=== PATIENT | male | born 1965 | race Caucasian/White ===

== ENCOUNTER → 2016-11-09 | Outpatient (CLI) | payer OTHER ==
[~2016-11-09] MED LIST: FLUT50SP EACH NARE; KCL20 PO; LEVE500 PO; PRAV20 PO; PROZ20CA11 PO; SODI1 PO; SYMB160A INH; VITA200017 PO
--- NOTE | 2016-11-10 11:33 | RSPPFT ---
DATE OF PROCEDURE: 11/09/16 COMMENTS: VOLUMES DYNAMIC: FVC low normal; FEV1 mildly reduced. STATIC: TLC, RV and FRC normal. FLOWS: FEV1% mildly reduced; FEF 25-75 severely reduced. DIFFUSION: Low normal. FLOW VOLUME LOOP: Pattern of variable intrathoracic airways obstruction. IMPRESSION: Mild obstructive ventilatory defect with good response to bronchodilator and normal diffusion.
== END ==
LOC: PHRSP 09:39
PROVIDERS: ATTEND Internal Medicine
DX: J44.9 Chronic obstructive pulmonary disease, unspecified (principal)
CPT/HCPCS: 94060; 94620; 94729

== ENCOUNTER 2017-01-01 07:32 | Observation (INO) | payer OTHER ==
[2017-01-01] VITALS (8 sets, daily range): BP systolic 92–115; BP diastolic 57–75; PULSE 66–84; RESP 14–20; TEMP 96.5–98.7; O2SAT 95–98
[~2017-01-01] VITALS: Ht 170.2 cm; Wt 68.0 kg
[2017-01-01] MEDS ORDERED: VENTAER INH (08:00)
[2017-01-01] MEDS ORDERED: OLAN20TA PO (08:00)
[2017-01-01] MEDS ORDERED: FLUT50SP EACH NARE (08:00)
[2017-01-01] MEDS ORDERED: POTA-163 PO (08:00)
[2017-01-01] MEDS ORDERED: FLUO1TAB3 PO (08:00)
[2017-01-01] MEDS ORDERED: PRAV20TA2 PO (08:00)
[2017-01-01] MEDS ORDERED: SODI1TAB PO (08:00)
[2017-01-01] MEDS ORDERED: [UNRECOGNIZED DRUG - CODE] (08:00)
[2017-01-01] MEDS ORDERED: LEVE500T8 PO (08:00)
[2017-01-01] MEDS ORDERED: SYMB160A INH (08:00)
--- NOTE | 2017-01-01 08:02 | PD ---
HPI Chief Complaint: Fall Time Seen by Provider: 08:01 Travel History International Travel<30 days: No Contact w/Intl Traveler<30days: No Traveled to known affect area: No History of Present Illness HPI 51-year-old male came to the emergency room with history of frequent falling since past 4 days. He's been brought here by his mother. She says that he has history of low potassium and low sodium in the past. Patient seems groggy and disoriented in time. His blood pressure was 94 systolic. As per the mother he has had stroke in the past. However his condition has been declining since past 2 months but worse since past 4 days. Patient is not a reliable historian. History is mostly obtained by his mother. As per her he has been having trouble even walking. [facility] Past Medical History Narrative Medical List of his past medical, surgical, social and family history is reviewed from the nursing note. Depression: Yes High Cholesterol: Yes Cerebrovascular Accident: Yes (SLURRED SPEECH) Diminished Hearing: No Neurologic: Yes (ich, brain trauma) Seizures: Yes Tetanus Vaccination: > 5 Years Influenza Vaccination: Yes Past Surgical History Surgical History: No Previous Surgery Tonsillectomy: Yes Social History Alcohol Use: No Tobacco Use: No (FORMER) Substance Use: Yes Allergies-Medications (Allergen,Severity, Reaction): Coded Allergies: No Known Allergies (Verified Allergy, Unknown, 01/01/17) Comments No known drug allergies. Reported Meds & Prescriptions Reported Meds & Active Scripts Active Reported Symbicort Inh (Budesonide/Formoterol Fumarate) 160-4.5 Mcg/Act Aero 1 Puff INH Q12HR Ventolin Hfa 18 GM Inh (Albuterol Sulfate) 90 Mcg/Act Aer 1 Puff INH Q4H PRN Fluticasone Nasal [place] 50 Mcg/Act Naspr 50 Mcg EACH NARE BID 50 mcg/spray Xaquil Xr (Levomefolate Glucosamine) 30 Mg Tab Olanzapine 20 Mg Tab 20 Mg PO DAILY Potassium Chloride ER (Potassium Chloride) 20 Meq Tab 20 Meq PO TID Fluoxetine (Fluoxetine HCl) 20 Mg Tab 4 Cap PO DAILY Pravastatin 20 Mg Tab 20 Mg PO DAILY Levetiracetam 500 Mg Tab 500 Mg PO BID Sodium Chloride 1 Gram Tab 1 Gm PO DAILY Narrative Medication List of his home medications reviewed from the nursing note. Review of Systems ROS Limitations: Altered Mental Status Except as stated in HPI: all other systems reviewed are Neg Neurologic: Positive: Weakness Physical Exam Narrative GENERAL: Altered mental status, slurred speech, disoriented in time SKIN: Focused skin assessment warm/dry. Scabs on the face HEAD: Atraumatic. Normocephalic. EYES: Pupils equal and round. No scleral icterus. No injection or drainage. ENT: No nasal bleeding or discharge. Mucous membranes pink and moist. NECK: Trachea midline. No JVD. CARDIOVASCULAR: Regular rate and rhythm. No murmur appreciated. RESPIRATORY: No accessory muscle use. Clear to auscultation. Breath sounds equal bilaterally. GASTROINTESTINAL: Abdomen soft, non-tender, nondistended. Hepatic and splenic margins not palpable. MUSCULOSKELETAL: No obvious deformities. No clubbing. No cyanosis. No edema. NEUROLOGICAL: Groggy. No obvious cranial nerve deficits. Motor grossly within normal limits. Slurred speech. Disoriented in time PSYCHIATRIC: Appropriate mood and affect; insight and judgment normal. Data Data Last Documented VS Vital Signs Date Time Temp Pulse Resp B/P (MAP) Pulse Ox O2 Delivery O2 Flow Rate FiO2 01/01/17 09:03 67 16 94/63 (73) 98 Room Air 01/01/17 07:38 97.4 Orders Orders Electrocardiogram (01/01/17 08:05) Ammonia (01/01/17 08:05) Complete Blood Count With Diff (01/01/17 08:05) Comprehensive Metabolic Panel (01/01/17 08:05) Creatine Kinase (Cpk) (01/01/17 08:05) Prothrombin Time / Inr (Pt) (01/01/17 08:05) Troponin I (01/01/17 08:05) Thyroid Stimulating Hormone (01/01/17 08:05) Urinalysis - C+S If Indicated (01/01/17 08:05) Lactic Acid Sepsis Protocol (01/01/17 08:05) Blood Culture (01/01/17 08:05) Chest, Single Ap (01/01/17 08:05) Ct Brain W/O Iv Contrast(Rout) (01/01/17 08:05) Blood Glucose (01/01/17 08:05) Ecg Monitoring (01/01/17 08:05) Iv Access Insert/Monitor (01/01/17 08:05) Oximetry (01/01/17 08:05) Sodium Chloride 0.9% Flush (Ns Flush) (01/01/17 08:15) Sodium Chlor 0.9% 1000 Ml Inj (Ns 1000 M (01/01/17 08:05) Alcohol (Ethanol) (01/01/17 08:06) Drug Screen, Random Urine (01/01/17 08:06) Salicylates (Aspirin) (01/01/17 08:06) Tylenol (Acetaminophen) (01/01/17 08:06) Potassium Chlor 10 Meq Premix (Kcl 10 Me (01/01/17 09:15) Potassium Chloride (Kcl) (01/01/17 09:15) Dextrose 50% In Adi (Syr) Inj (D50w (Syr (01/01/17 09:15) Place In Observation (01/01/17 ) Code Status (01/01/17 09:33) Vital Signs (Adult) Q4H (01/01/17 09:33) Activity Oob With Assistance (01/01/17 09:33) Diet Regular Basic (01/01/17 Breakfast) Sodium Chloride 0.9% Flush (Ns Flush) (01/01/17 09:45) Sodium Chloride 0.9% Flush (Ns Flush) (01/01/17 21:00) Acetaminophen (Tylenol) (01/01/17 09:45) Ondansetron Inj (Zofran Inj) (01/01/17 09:45) Comprehensive Metabolic Panel (01/02/17 06:00) Complete Blood Count With Diff (01/02/17 06:00) Pt Request For Service (01/01/17 09:33) Case Management Consult (01/01/17 09:33) Scd Bilateral/Knee High DAVI.BID (01/01/17 09:33) Acetaminophen (Tylenol) (01/01/17 09:45) Naloxone Inj (Narcan Inj) (01/01/17 09:45) Magnesium Hydroxide Liq (Milk Of Magnesi (01/01/17 09:45) Eeg Study (01/01/17 ) Albuterol Hfa Inh (Proair Hfa Inh) (01/01/17 09:45) Budeson-Formot 160-4.5 Mg Inh (Symbicort (01/01/17 21:00) Fluoxetine (Prozac) (01/02/17 09:00) Levetiracetam (Keppra) (01/01/17 21:00) Olanzapine (Zyprexa) (01/02/17 09:00) Potassium Chloride (Kcl) (01/01/17 13:00) Pravastatin (Pravachol) (01/02/17 09:00) Sodium Chloride (Sodium Chloride) (01/02/17 09:00) Admit Order (Ed Use Only) (01/01/17 09:40) Labs Laboratory Tests Test 01/01/17 08:10 01/01/17 08:20 01/01/17 08:30 Acetaminophen Level LESS THAN 2.0 MCG/ML Ethyl Alcohol Level LESS THAN 3 MG/DL White Blood Count 7.0 TH/MM3 Red Blood Count 4.45 MIL/MM3 Hemoglobin 12.9 GM/DL Hematocrit 38.6 % Mean Corpuscular Volume 86.9 FL Mean Corpuscular Hemoglobin 29.0 PG Mean Corpuscular Hemoglobin Concent 33.3 % Red Cell Distribution Width 13.8 % Platelet Count 330 TH/MM3 Mean Platelet Volume 6.7 FL Neutrophils (%) (Auto) 72.0 % Lymphocytes (%) (Auto) 20.8 % Monocytes (%) (Auto) 6.5 % Eosinophils (%) (Auto) 0.5 % Basophils (%) (Auto) 0.2 % Neutrophils # (Auto) 5.0 TH/MM3 Lymphocytes # (Auto) 1.5 TH/MM3 Monocytes # (Auto) 0.5 TH/MM3 Eosinophils # (Auto) 0.0 TH/MM3 Basophils # (Auto) 0.0 TH/MM3 CBC Comment DIFF FINAL Differential Comment Prothrombin Time 11.5 SEC Prothromb Time International Ratio 1.0 RATIO Blood Urea Nitrogen 8 MG/DL Creatinine 0.89 MG/DL Random Glucose 68 MG/DL Total Protein 7.1 GM/DL Albumin 3.5 GM/DL Calcium Level 8.9 MG/DL Alkaline Phosphatase 64 U/L Aspartate Amino Transf (AST/SGOT) 14 U/L Alanine Aminotransferase (ALT/SGPT) 19 U/L Total Bilirubin 0.5 MG/DL Sodium Level 130 MEQ/L Potassium Level 2.5 MEQ/L Chloride Level 85 MEQ/L Carbon Dioxide Level 36.8 MEQ/L Anion Gap 8 MEQ/L Estimat Glomerular Filtration Rate 90 ML/MIN Lactic Acid Level 1.3 mmol/L Total Creatine Kinase 130 U/L Troponin I LESS THAN 0.02 NG/ML Thyroid Stimulating Hormone 3rd Gen 0.456 uIU/ML Salicylates Level LESS THAN 1.7 MG/DL Ammonia 26 MCMOL/L [facility] Medical Decision Making Medical Screen Exam Complete: Yes Emergency Medical Condition: Yes Medical Record Reviewed: Yes Interpretation(s) Twelve-lead EKG was reviewed by me. Normal sinus rhythm, normal axis, nonspecific ST-T wave changes. Heart rate of 78 bpm. Differential Diagnosis Intracranial bleed, stroke, hyponatremia, hypokalemia, metabolic encephalopathy Narrative Course 9:[address] scan is back and negative for any acute changes. Blood test is significant for a potassium of 2.5 and moderate hyponatremia and hypochloremia. I've ordered for IV and by mouth potassium replacement. His blood sugar was 68 and I've ordered D50. I would like to admit this patient at this point. Awaiting for the hospitalist to call back. Critical Care Narrative Aggregate critical care time was 30 minutes. Time to perform other separately billable procedures was not included in the critical care time. My time did not include minutes spent treating any other patients simultaneously or on activities that did not directly contribute to the patient's treatment. The services I provided to this patient were to treat and/or prevent clinically significant deterioration that could result in: Severe hypokalemia, altered mental status, potassium replacement I provided critical care services requiring my management, as noted below: Chart data review, documentation time, medication orders and management, vital sign assessments/reviewing monitor data, ordering and reviewing lab tests, ordering and interpreting/reviewing x-rays and diagnostic studies, care of the patient and discussion of the patient with the admitting physicians. Procedures EKG Prior to Arrival: No Diagnosis Primary Impression: Altered mental status Qualified Codes: R41.0 - Disorientation, unspecified Additional Impressions: Hypokalemia Hyponatremia Hyperchloremia Hypoglycemia Frequent falls Unsteady gait Admitting Information Admitting Physician Requests: Sarah Salguero MD Jan 01, 2017 08:02
[2017-01-01] MEDS ORDERED: SODIUM CHLOR 0.9% 1000 ML INJ 1,000 ML IV SCH (08:05)
[2017-01-01] MEDS ORDERED: SODIUM CHLORIDE 0.9% FLUSH 5 ML FLUSH IV FLUSH PRN (08:15)
[2017-01-01 08:38] LABS: BASOPHIL % 0.2 % (0.0-2.0); EOSINOPHIL % 0.5 % (0.0-4.0); HEMATOCRIT 38.6 % (39.0-51.0); HEMO FLAGS DIFF FINAL; LYMPH % 20.8 % (9.0-44.0); LYMPHOCYTE # 1.5 TH/MM3 (1.0-4.8); MEAN CELL VOLUME 86.9 FL (80.0-100.0); MEAN CORPUSCULAR HGB CONC 33.3 % (32.0-36.0); MONO % 6.5 % (0.0-8.0); PLATELET COUNT 330 TH/MM3 (150-450); RED BLOOD COUNT 4.45 MIL/MM3 (4.50-5.90); RED CELL DISTRIBUTION WIDTH 13.8 % (11.6-17.2)
--- NOTE | 2017-01-01 08:40 | RADRPT ---
EXAM DATE/TIME: 01/01/2017 08:29 [facility] COMPARISON: CHEST SINGLE AP, April 22, 2015, 10:34. INDICATIONS : Syncopal episodes for the last month. MEDICAL HISTORY : Stroke. Right side brain trauma. SURGICAL HISTORY : None. ENCOUNTER: Initial ACUITY: 1 month PAIN SCORE: 0/10 LOCATION: Bilateral chest FINDINGS: A single view of the chest demonstrates the lungs to be symmetrically aerated without evidence of mas s, infiltrate or effusion. Linear atelectasis within the right base. The cardiomediastinal contours a re unremarkable. Osseous structures are intact. CONCLUSION: No acute disease. Shabbir Solorio Jr., MD on January 01, 2017 at 8:37 Board Certified Radiologist. This report was verified electronically.
--- NOTE | 2017-01-01 08:55 | RADRPT ---
EXAM DATE/TIME: 01/01/2017 08:41 [facility] COMPARISON: CT BRAIN W/O CONTRAST, July 18, 2015, 14:20. INDICATIONS : Unsteady gait. Fall. RADIATION DOSE: 59.61 CTDIvol (mGy) MEDICAL HISTORY : Cerebrovascular disease. Seizures. SURGICAL HISTORY : Tonsillectomy. ENCOUNTER: Initial ACUITY: 4 - 6 days PAIN SCALE: 2/10 LOCATION: cranial TECHNIQUE: Multiple contiguous axial images were obtained of the head. Using automated exposure control and adj ustment of the mA and/or kV according to patient size, radiation dose was kept as low as reasonably a chievable to obtain optimal diagnostic quality images. DICOM format image data is available electro nically for review and comparison. FINDINGS: Old infarcts are seen in the left temporal parietal region. Frontal atrophy is evident. There is mi ld atrophy. There is no parenchymal hemorrhage or acute infarction. The posterior fossa is unremark able. There is no significant sinus disease. CONCLUSION: Chronic changes, negative for acute infarction. Yoshi Jhaveri MD FACR on January 01, 2017 at 8:52 Board Certified Radiologist. This report was verified electronically.
[2017-01-01 09:00] LABS: ALT (GPT) 19 U/L (12-78); ANION GAP 8 MEQ/L (5-15); AST (GOT) 14 U/L (15-37); BICARBONATE 36.8 MEQ/L (21.0-32.0); BLOOD UREA NITROGEN 8 MG/DL (7-18); CHLORIDE 85 MEQ/L (98-107); GLOMERULAR FILTRATION RATE 90 ML/MIN (>89); SODIUM (NA) 130 MEQ/L (136-145)
[2017-01-01 09:01] LABS: ALCOHOL LESS THAN 3 MG/DL (0-5)
[2017-01-01 09:05] LABS: POTASSIUM 2.5 MEQ/L (3.5-5.1); PROTHROMBIN TIME - PATIENT 11.5 SEC (9.8-11.6)
[2017-01-01 09:12] LABS: ALKALINE PHOSPHATASE 64 U/L (45-117); CREATINE KINASE 130 U/L (39-308); TOTAL BILIRUBIN ADULT 0.5 MG/DL (0.2-1.0)
[2017-01-01] MEDS ORDERED: POTASSIUM CHLORIDE 20 MEQ CONTROLLED RELEASE TAB PO ONE (09:15)
[2017-01-01] MEDS ORDERED: DEXTROSE 50% IN WATER 50 ML SYRINGE IV PUSH ONE (09:15)
[2017-01-01] MEDS: POTASSIUM CHLOR 10 MEQ PREMIX 100 ML IV SCH ×3 (09:31→12:53)
[2017-01-01] MEDS ORDERED: NALOXONE HCL 0.4 MG/ML AMP IV PUSH PRN (09:45)
[2017-01-01] MEDS ORDERED: ACETAMINOPHEN 325 MG TAB PO PRN ×2 (09:45)
[2017-01-01] MEDS ORDERED: ALBUTEROL SULFATE 90 MCG/ACT HFA 8 GM INHALER INH PRN (09:45)
[2017-01-01] MEDS ORDERED: MAGNESIUM HYDROXIDE SUSP 30 ML CUP PO PRN (09:45)
[2017-01-01] MEDS ORDERED: SODIUM CHLORIDE 0.9% FLUSH 10 ML FLUSH IV FLUSH PRN (09:45)
[2017-01-01] MEDS ORDERED: ONDANSETRON HCL 4 MG/2 ML VIAL IVP PRN (09:45)
[2017-01-01 10:28] LABS: ACETAMINOPHEN LESS THAN 2.0 MCG/ML (10.0-30.0)
[2017-01-01 10:46] LABS: BLOOD, URINE LARGE (NEG); GLUCOSE,URINE 100 mg/dL (NEG); KETONE, URINE NEG (NEG); NITRITE,URINE NEG (NEG); PH, URINE 7.5 (5.0-8.5)
[2017-01-01 10:52] LABS: METHOD OF COLLECTION CATH; URINE COLOR STRAW (YELLW/STRAW)
[2017-01-01 10:55] LABS: COMMENT (UR) CATH-CULT NOT IND; CULTURE IF INDICATED CATH CULTURE NOT IND
--- NOTE | 2017-01-01 10:59 | HHI.HP ---
[facility] Darin Edgar MD Admission Diagnosis EMS, hypokalemia, hyponatremia, hypoglycemia Diagnoses: (1) Frequent falls Diagnosis: Principal (2) Hyponatremia Diagnosis: Principal (3) Hypokalemia Diagnosis: Principal (4) Unsteady gait Diagnosis: Principal Chief Complaint: Frequent falls at home Travel History International Travel<30 Days: No Contact w/Intl Traveler <30 Da: No Traveled to Known Affected Are: No History of Present Illness Written by Wally Guerrero, acting as scribe for Dr. Watts on 01/01/17 at 10 :58. 51 year-old male with known history of closed head injury, CVA, frontal lobe damage, seizure history, hyperlipidemia, bipolar disorder who presented to hospital with his mother because of 4 day history of recurrent falls. Information was taken from mother at bedside, she indicates that for the last 4 days the patient is had episodes of where this IQ just fall asleep while he is standing up and falls down. She states that he went to take the dog out for a walk and they went outside and found him lying face down on the concrete where he caused abrasions to the left side of his face. She indicates that she has had difficulty in lifting him back Whenever he falls down. He does have a confused state after the episodes with not being able to remember what happened during that time. There is no episodes of loss of bowel or bladder control or biting of his tongue. Patient has had admissions previously because of seizure disorder. Does have chronic hyponatremia and hypokalemia. He is followed by Dr. Peralta, neurology in outpatient setting. Patient was recommended observation the hospital to evaluate for the patient's episodes. Review of Systems Cardiovascular: COMPLAINS OF: Syncope Psychiatric: COMPLAINS OF: Confusion Except as stated in HPI: all other systems reviewed are Neg Past Family Social History Past Medical History Seizure disorder History of CVA History of intracranial hemorrhage Chronic hyponatremia Recurrent hypokalemia Suicidal ideation Traumatic brain injury Bipolar disorder Past Surgical History No history of any surgeries Reported Medications Reported Meds & Active Scripts Active Reported Symbicort Inh (Budesonide/Formoterol Fumarate) 160-4.5 Mcg/Act Aero 1 Puff INH Q12HR Ventolin Hfa 18 GM Inh (Albuterol Sulfate) 90 Mcg/Act Aer 1 Puff INH Q4H PRN Fluticasone Nasal [place] 50 Mcg/Act Naspr 50 Mcg EACH NARE BID 50 mcg/spray Xaquil Xr (Levomefolate Glucosamine) 30 Mg Tab Olanzapine 20 Mg Tab 20 Mg PO DAILY Potassium Chloride ER (Potassium Chloride) 20 Meq Tab 20 Meq PO TID Fluoxetine (Fluoxetine HCl) 20 Mg Tab 4 Cap PO DAILY Pravastatin 20 Mg Tab 20 Mg PO DAILY Levetiracetam 500 Mg Tab 500 Mg PO BID Sodium Chloride 1 Gram Tab 1 Gm PO DAILY Allergies: Coded Allergies: No Known Allergies (Verified Allergy, Unknown, 01/01/17) Family History Reviewed is significant for father with heart disease, Social History Patient smokes one half pack a cigarettes a day since he was 14 years old, denies any alcohol or illicit drugs Physical Exam Vital Signs Vital Signs Date Time Temp Pulse Resp B/P (MAP) Pulse Ox O2 Delivery O2 Flow Rate FiO2 01/01/17 10:33 70 16 115/75 (88) 98 Room Air 01/01/17 09:03 67 16 94/63 (73) 98 Room Air 01/01/17 08:11 97 Room Air 01/01/17 07:49 75 Room Air 01/01/17 07:38 97.4 82 18 101/68 (79) 95 Physical Exam GENERAL: Well-developed, well-nourished, in no acute distress. alert and orientated HEENT: Head is normocephalic patient does have some abrasions noted over his left brow, nasal bridge, left cheek. Facial features are symmetric. Eyes: Pupils equal round reactive to light. Extraocular muscles are intact. Conjunctivae were clear. Oropharyngeal: Pharynx without any erythema edema. Tongue is midline without deviation. Buccal mucosa is moist without any masses or lesions NECK: Supple without any masses. Trachea midline no deviation. No JVD, no bruits are appreciated CARDIAC: Regular rhythm, regular rate. S1/S2 are heard. No murmurs gallops or rubs. LUNGS: Clear to auscultation bilaterally. No wheeze, rhonchi or rales. No use of accessory muscles on inspiration or expiration. ABDOMEN: Soft, nontender. Nondistended. Bowel sounds heard in all 4 quadrants. No organomegaly or masses. Negative rebound, negative guarding EXTREMITIES: No edema, pulses are equal bilaterally. No cyanosis or clubbing NEUROLOGY: Mood and affect appear appropriate. Cranial nerves II through XII grossly intact. Muscle strength 5/5 in upper and lower extremities bilaterally. Deep tendon reflexes are 2+ in upper and lower extremities bilaterally. Laboratory Laboratory Tests Test 01/01/17 08:10 01/01/17 08:20 01/01/17 08:30 01/01/17 10:30 Acetaminophen Level LESS THAN 2.0 Ethyl Alcohol Level LESS THAN 3 White Blood Count 7.0 Red Blood Count 4.45 Hemoglobin 12.9 Hematocrit 38.6 Mean Corpuscular Volume 86.9 Mean Corpuscular Hemoglobin 29.0 Mean Corpuscular Hemoglobin Concent 33.3 Red Cell Distribution Width 13.8 Platelet Count 330 Mean Platelet Volume 6.7 Neutrophils (%) (Auto) 72.0 Lymphocytes (%) (Auto) 20.8 Monocytes (%) (Auto) 6.5 Eosinophils (%) (Auto) 0.5 Basophils (%) (Auto) 0.2 Neutrophils # (Auto) 5.0 Lymphocytes # (Auto) 1.5 Monocytes # (Auto) 0.5 Eosinophils # (Auto) 0.0 Basophils # (Auto) 0.0 CBC Comment DIFF FINAL Differential Comment Prothrombin Time 11.5 Prothromb Time International Ratio 1.0 Blood Urea Nitrogen 8 Creatinine 0.89 Random Glucose 68 Total Protein 7.1 Albumin 3.5 Calcium Level 8.9 Alkaline Phosphatase 64 Aspartate Amino Transf (AST/SGOT) 14 Alanine Aminotransferase (ALT/SGPT) 19 Total Bilirubin 0.5 Sodium Level 130 Potassium Level 2.5 Chloride Level 85 Carbon Dioxide Level 36.8 Anion Gap 8 Estimat Glomerular Filtration Rate 90 Lactic Acid Level 1.3 Total Creatine Kinase 130 Troponin I LESS THAN 0.02 Thyroid Stimulating Hormone 3rd Gen 0.456 Salicylates Level LESS THAN 1.7 Ammonia 26 Urine Collection Type CATH Urine Color STRAW Urine Turbidity CLEAR Urine pH 7.5 Urine Specific [place] 1.006 Urine Protein NEG Urine Glucose (UA) 100 Urine Ketones NEG Urine Occult Blood LARGE Urine Nitrite NEG Urine Bilirubin NEG Urine Leukocyte Esterase NEG Urine RBC 10-14 Microscopic Urinalysis Comment CATH-CULT NOT IND Date/Time Source Procedure Growth Status 01/01/17 08:25 Blood Peripheral Aerobic Blood Culture Pending Received 01/01/17 08:25 Blood Peripheral Anaerobic Blood Culture Pending Received Result Diagram: 01/01/1781901/01/17819 Caprini VTE Risk Assessment Caprini VTE Risk Assessment: Mod/High Risk (score >= 2) Caprini Risk Assessment Model Point Value = 1 Point Value = 2 Point Value = 3 Point Value = 5 Age 41-60 Minor surgery BMI > 25 kg/m2 Swollen legs Varicose veins or History of unexplained or recurrent spontaneous Oral contraceptives or hormone replacement Sepsis (< 1 month) Serious lung disease, including pneumonia (< 1 month) Abnormal pulmonary function Acute myocardial infarction Congestive heart failure (< 1 month) History of inflammatory bowel disease Medical patient at bed rest Age 61-74 Arthroscopic surgery Major open surgery (> 45 min) Laparoscopic surgery (> 45 min) Malignancy Confined to bed (> 72 hours) Immobilizing plaster cast Central venous access Age >= 75 History of VTE Family history of VTE Factor V Leiden Prothrombin [id number] Lupus anticoagulant Anticardiolipin antibodies Elevated serum homocysteine Heparin-induced thrombocytopenia Other congenital or acquired thrombophilia Stroke (< 1 month) Elective arthroplasty Hip, pelvis, or leg fracture Acute spinal cord injury (< 1 month) Prophylaxis Regimen Total Risk Factor Score Risk Level Prophylaxis Regimen 0-1 Low Early ambulation 2 Moderate Order ONE of the following: *Sequential Compression Device (SCD) *Heparin 5000 units SQ BID 3-4 Higher Order ONE of the following medications: *Heparin 5000 units SQ TID *Enoxaparin/Lovenox 40 mg SQ daily (WT < 150 kg, CrCl > 30 mL/min) *Enoxaparin/Lovenox 30 mg SQ daily (WT < 150 kg, CrCl > 10-29 mL/min) *Enoxaparin/Lovenox 30 mg SQ BID (WT < 150 kg, CrCl > 30 mL/min) AND/OR *Sequential Compression Device (SCD) 5 or more Highest Order ONE of the following medications: *Heparin 5000 units SQ TID (Preferred with Epidurals) *Enoxaparin/Lovenox 40 mg SQ daily (WT < 150 kg, CrCl > 30 mL/min) *Enoxaparin/Lovenox 30 mg SQ daily (WT < 150 kg, CrCl > 10-29 mL/min) *Enoxaparin/Lovenox 30 mg SQ BID (WT < 150 kg, CrCl > 30 mL/min) AND *Sequential Compression Device (SCD) Assessment and Plan Problem List: (1) Hyponatremia ICD Code: E87.1 - Hypo-osmolality and hyponatremia Status: Acute (2) Hypokalemia ICD Code: E87.6 - Hypokalemia Status: Acute (3) Frequent falls ICD Code: R29.6 - Repeated falls Status: Acute Assessment and Plan 51 year-old male who was brought to the hospital by his mother because of recurrent falls and altered mentation Recurrent falls at home, difficulty ambulation for 4 days with possible post ictal state, confusion Workup thus far does not indicate any metabolic encephalopathy or etiology, could be related to electrolyte abnormality Obtain EEG Physical therapy evaluation CT the brain does not indicate any acute abnormality Electrolyte abnormalities with chronic hyponatremia, recurrent hypokalemia Replace and continue to monitor Seizure disorder, history of CVA, Resume home medications to include Keppra Check EEG and consider Neurology consultation if abnormal Bipolar disorder Continue home medications DVT prevention sequential compression devices This note was transcribed by scribjorge Guerrero. I, Dr. Bolivar Watts personally performed the history, physical exam, and medical decision making; and confirmed the accuracy of the information in the transcribed note. Authenticated by Dr. Bolivar Watts on 01/01/17 at 10:58. Code Status Full code Discussed Condition With patient, Mother, ED physician Wally Guerrero Jan 01, 2017 10:59 Bolivar Watts MD Jan 01, 2017 11:02
--- NOTE | 2017-01-01 12:07 | EKG ---
Date Performed: 01/01/2017 Time Performed: 08:12:52 PTAGE: 51 years EKG: Sinus rhythm NORMAL ECG PREVIOUS TRACING : 04/22/2015 10.08 No significant change from previous tracing noted. DOCTOR: Krishan Logan Interpretating Date/Time 01/01/2017 12:05:24
[2017-01-01] MEDS: POTASSIUM CHLORIDE 20 MEQ CONTROLLED RELEASE TAB PO SCH ×2 (12:53→17:49)
--- NOTE | 2017-01-01 18:29 | MG ---
cc: GWEN DAVIS MD Lab No: [id number] Date: 01/01/17 Age: 51 Sex: M Race: DATE OF 1965 HISTORY A 51-year-old male with history of brain injury, confusion, syncope, previous strokes. DESCRIPTION OF RECORD 5-6 Hz posterior rhythm. 10-40 microvolts, myogenic artifact in the frontal channels. Attenuation, generalized slowing with transition into drowsy state. Mild driving with photic stimulation. Single lead EKG showing sinus rhythm. Good EEG variability, reactivity. INTERPRETATION Mild encephalopathy. Clinical correlation. Gwen Davis MD MG/EO /6:14 PM /6:22 PM
[2017-01-01] MEDS: levETIRAcetam 500 MG TAB PO SCH (20:54)
[2017-01-01] MEDS: SODIUM CHLORIDE 0.9% FLUSH 10 ML FLUSH IV FLUSH SCH (20:54)
[2017-01-01] MEDS: BUDESONIDE-FORMOTEROL 160/4.5 MCG INHALER INH SCH (20:54)
[2017-01-02] VITALS: BP 91/53; PULSE 78; RESP 20; TEMP 97.5; O2SAT 97
[2017-01-02 04:00] VITALS: BP 103/61; PULSE 86; RESP 20; TEMP 99; O2SAT 98
[2017-01-02 06:18] LABS: AUTOMATED NEUTROPHIL # 4.6 TH/MM3 (1.8-7.7); BASOPHIL % 0.4 % (0.0-2.0); EOSINOPHIL # 0.1 TH/MM3 (0-0.4); EOSINOPHIL % 0.9 % (0.0-4.0); HEMATOCRIT 37.7 % (39.0-51.0); HEMO FLAGS DIFF FINAL; LYMPH % 19.5 % (9.0-44.0); LYMPHOCYTE # 1.2 TH/MM3 (1.0-4.8); MEAN CELL VOLUME 88.6 FL (80.0-100.0); MEAN CORPUSCULAR HEMOGLOBIN 28.3 PG (27.0-34.0); MONO % 6.6 % (0.0-8.0); NEUT % 72.6 % (16.0-70.0); PLATELET COUNT 333 TH/MM3 (150-450); RED BLOOD COUNT 4.25 MIL/MM3 (4.50-5.90); RED CELL DISTRIBUTION WIDTH 14.6 % (11.6-17.2); WHITE BLOOD COUNT 6.3 TH/MM3 (4.0-11.0)
[2017-01-02 06:51] LABS: ALKALINE PHOSPHATASE 65 U/L (45-117); ALT (GPT) 17 U/L (12-78); ANION GAP 7 MEQ/L (5-15); AST (GOT) 9 U/L (15-37); BICARBONATE 31.1 MEQ/L (21.0-32.0); BLOOD UREA NITROGEN 7 MG/DL (7-18); CHLORIDE 98 MEQ/L (98-107); GLOMERULAR FILTRATION RATE 109 ML/MIN (>89); POTASSIUM 3.2 MEQ/L (3.5-5.1); SODIUM (NA) 136 MEQ/L (136-145); TOTAL BILIRUBIN ADULT 0.3 MG/DL (0.2-1.0)
[2017-01-02 08:00] VITALS: BP 109/66; PULSE 70; RESP 18; TEMP 97; O2SAT 99
[2017-01-02 08:01] VITALS: PULSE 91
[2017-01-02] MEDS: POTASSIUM CHLORIDE 20 MEQ CONTROLLED RELEASE TAB PO SCH ×2 (08:05→11:38)
[2017-01-02] MEDS: levETIRAcetam 500 MG TAB PO SCH (08:07)
[2017-01-02] MEDS: SODIUM CHLORIDE 0.9% FLUSH 10 ML FLUSH IV FLUSH SCH (08:08)
[2017-01-02] MEDS: BUDESONIDE-FORMOTEROL 160/4.5 MCG INHALER INH SCH (08:08)
[2017-01-02] MEDS ORDERED: PRAVASTATIN SOD 20 MG TAB PO SCH (09:00)
[2017-01-02] MEDS ORDERED: OLANZapine 10 MG TAB PO SCH (09:00)
[2017-01-02] MEDS ORDERED: FLUoxetine HCL 20 MG CAP PO SCH (09:00)
[2017-01-02] MEDS ORDERED: OLANZapine 5 MG TAB PO SCH (09:00)
[2017-01-02] MEDS ORDERED: SODIUM CHLORIDE 1 GRAM TAB PO SCH (09:00)
--- NOTE | 2017-01-02 10:20 | HHI.DCPOC ---
Discharge Care Plan Diagnosis: (1) Frequent falls (2) Hypokalemia Goals to Promote Your Health * To prevent worsening of your condition and complications * To maintain your health at the optimal level Directions to Meet Your Goals Take your medications as prescribed Follow your dietary instruction Follow activity as directed Keep your appointments as scheduled Take your immunizations and boosters as scheduled If your symptoms worsen call your PCP, if no PCP go to Urgent Care Center or Emergency Room Smoking is Dangerous to Your Health. Avoid second hand smoke Call the 24-hour hour crisis hotline for domestic abuse at Barbra Hylton MD Jan 02, 2017 10:20
--- NOTE | 2017-01-02 10:36 | HHI.DS ---
Discharge Summary Admission Date Jan 01, 2017 at 09:41 Discharge Date: Jan 02, 2017 Admitting Diagnosis EMS, hypokalemia, hyponatremia, hypoglycemia (1) Hyponatremia ICD Code: E87.1 - Hypo-osmolality and hyponatremia Status: Acute (2) Hypokalemia ICD Code: E87.6 - Hypokalemia Status: Acute (3) Frequent falls ICD Code: R29.6 - Repeated falls Status: Acute Procedures none Brief History - From Admission Written by Wally Guerrero, acting as scribe for Dr. Watts on 01/01/17 at 10 :58. 51 year-old male with known history of closed head injury, CVA, frontal lobe damage, seizure history, hyperlipidemia, bipolar disorder who presented to hospital with his mother because of 4 day history of recurrent falls. Information was taken from mother at bedside, she indicates that for the last 4 days the patient is had episodes of where this IQ just fall asleep while he is standing up and falls down. She states that he went to take the dog out for a walk and they went outside and found him lying face down on the concrete where he caused abrasions to the left side of his face. She indicates that she has had difficulty in lifting him back Whenever he falls down. He does have a confused state after the episodes with not being able to remember what happened during that time. There is no episodes of loss of bowel or bladder control or biting of his tongue. Patient has had admissions previously because of seizure disorder. Does have chronic hyponatremia and hypokalemia. He is followed by Dr. Peralta, neurology in outpatient setting. Patient was recommended observation the hospital to evaluate for the patient's episodes. CBC/BMP: 01/02/17 0555 01/02/17 0555 Significant Findings Laboratory Tests Test 01/01/17 08:10 01/01/17 08:20 01/01/17 08:30 01/01/17 10:30 Acetaminophen Level LESS THAN 2.0 MCG/ML Red Blood Count 4.45 MIL/MM3 (4.50-5.90) Hemoglobin 12.9 GM/DL (13.0-17.0) Hematocrit 38.6 % (39.0-51.0) Mean Platelet Volume 6.7 FL (7.0-11.0) Neutrophils (%) (Auto) 72.0 % (16.0-70.0) Random Glucose 68 MG/DL (74-106) Aspartate Amino Transf (AST/SGOT) 14 U/L (15-37) Sodium Level 130 MEQ/L (136-145) Potassium Level 2.5 MEQ/L (3.5-5.1) Chloride Level 85 MEQ/L (98-107) Carbon Dioxide Level 36.8 MEQ/L (21.0-32.0) Troponin I LESS THAN 0.02 NG/ML Salicylates Level LESS THAN 1.7 MG/DL Urine Glucose (UA) 100 mg/dL (NEG) Urine Occult Blood LARGE (NEG) Urine RBC 10-14 /hpf (0-3) Urine Benzodiazepines Screen POS (NEG) Test 01/02/17 05:55 Red Blood Count 4.25 MIL/MM3 (4.50-5.90) Hemoglobin 12.0 GM/DL (13.0-17.0) Hematocrit 37.7 % (39.0-51.0) Mean Platelet Volume 6.6 FL (7.0-11.0) Neutrophils (%) (Auto) 72.6 % (16.0-70.0) Albumin 3.3 GM/DL (3.4-5.0) Calcium Level 8.4 MG/DL (8.5-10.1) Aspartate Amino Transf (AST/SGOT) 9 U/L (15-37) Potassium Level 3.2 MEQ/L (3.5-5.1) Imaging Last Impressions Head CT 01/01/17804 Signed Impressions: Service Date/Time: Sunday, January 01, 2017 08:41 - CONCLUSION: Chronic changes, negative for acute infarction. Yoshi Jhaveri MD FACR Chest X-Ray 01/01/17804 Signed Impressions: Service Date/Time: Sunday, January 01, 2017 08:29 - CONCLUSION: No acute disease. Shabbir Solorio Jr., MD PE at Discharge GENERAL: This is a well-nourished, well-developed patient, in no apparent distress. CARDIOVASCULAR: Regular rate and rhythm without murmurs, gallops, or rubs. RESPIRATORY: Clear to auscultation. Breath sounds equal bilaterally. No wheezes , rales, or rhonchi. GASTROINTESTINAL: Abdomen soft, non-tender, nondistended. Normal active bowel sounds MUSCULOSKELETAL: Extremities without clubbing, cyanosis, or edema. NEURO: animated, Alert & Oriented x4 to person, place, time, situation. Moves all ext x4 Hospital Course Patient was seen and evaluated for recurrent falls at home. Patient did have an EEG done. He also has electrolytes checked and was found to be sniffly hypokalemic. His potassium was replaced. Patient was monitored on telemetry without evidence of arrhythmia. CT of the head and EEG were unremarkable. Patient does have a chronic brain injury as well as a history of stroke. Patient did well in the hospital and was discharged home Pt Condition on Discharge: Good Discharge Disposition: Discharge Home Discharge Time: <= 30 minutes Discharge Instructions DIET: Follow Instructions for: As Tolerated, No Restrictions Activities you can perform: Regular-No Restrictions Follow up Referrals: PCP Follow-up - 1 Week Continued Medications: Albuterol 18 GM Inh (Ventolin Hfa 18 GM Inh) 90 Mcg/Act Aer 1 PUFF INH Q4H PRN for SHORTNESS OF BREATH, #1 INHALER 0 Refills Budesonide-Formoterol Inh (Symbicort Inh) 160-4.5 Mcg/Act Aero 1 PUFF INH Q12HR, #1 INHALER 0 Refills Fluoxetine (Fluoxetine) 20 Mg Tab 4 CAP PO DAILY, #30 TAB 0 Refills Fluticasone Nasal [place] (Fluticasone Nasal [place]) 50 Mcg/Act Naspr 50 MCG EACH NARE BID for Allergy Management, #1 BOTTLE 0 Refills 50 mcg/spray Levetiracetam (Levetiracetam) 500 Mg Tab 500 MG PO BID for Control Seizures, #60 TAB 0 Refills Levomefolate Glucosamine (Xaquil Xr) 30 Mg Tab Olanzapine (Olanzapine) 20 Mg Tab 20 MG PO DAILY, #30 TAB 0 Refills Potassium Chloride ER (Potassium Chloride ER) 20 Meq Tab 20 MEQ PO TID for Electrolyte Replacement, #60 TAB 0 Refills Pravastatin (Pravastatin) 20 Mg Tab 20 MG PO DAILY for Cholesterol Management, #30 TAB 0 Refills Sodium Chloride (Sodium Chloride) 1 Gram Tab 1 GM PO DAILY for Electrolyte Replacement, TAB 0 Refills Barbra Hylton MD Jan 02, 2017 10:36
[2017-01-02] MEDS ORDERED: MAGNESIUM SULFATE 1 GM PREMIX 100 ML IV ONE (11:00)
[2017-01-02 12:00] VITALS: BP 91/54; PULSE 76; RESP 16; TEMP 98.7; O2SAT 99
== END 2017-01-02 12:56 | disposition home or self-care (01) ==
LOC: PHED 07:32 → PHEDA 09:41 → PH3A 11:03
PROVIDERS: ADMIT Hospitalist; ATTEND Hospitalist
DX: E87.1 Hypo-osmolality and hyponatremia (principal); E87.6 Hypokalemia; R29.6 Repeated falls; S00.81XA Abrasion of other part of head, initial encounter; R26.81 Unsteadiness on feet; E78.5 Hyperlipidemia, unspecified; G40.909 Epilepsy, unspecified, not intractable, without status epilepticus; R55 Syncope and collapse; F17.210 Nicotine dependence, cigarettes, uncomplicated; Z86.73 Personal history of transient ischemic attack (TIA), and cerebral infarction without residual deficits; W19.XXXA Unspecified fall, initial encounter; Y93.K1 Activity, walking an animal; Y92.017 Garden or yard in single-family (private) house as the place of occurrence of the external cause
CPT/HCPCS: 70450; 71010; 80053; 80307; 81001; 82140; 82550; 83605; 83735; 84443; 84484; 85025; 85610; 87040; 93005; 95819; 96361; 96365; 96366; 97110; 97163; 97530; 99285; G0378; G8987; G8988; J3475; J3480; J7030

== ENCOUNTER 2017-01-21 09:21 | Inpatient (IN) | payer OTHER, MEDICARE ==
[2017-01-21] VITALS (17 sets, daily range): BP systolic 83–126; BP diastolic 53–76; PULSE 92–156; RESP 18–38; TEMP 97.5–102.9; O2SAT 95–98
[~2017-01-21 09:21] MED LIST changes: +FLUO1TAB3 PO; -KCL20 PO; -LEVE500 PO; +LEVE500T8 PO; +OLAN20TA PO; +POTA-163 PO; -PRAV20 PO; +PRAV20TA2 PO; -PROZ20CA11 PO; -SODI1 PO; +SODI1TAB PO; +VENTAER INH; -VITA200017 PO; +[UNRECOGNIZED DRUG - CODE]
[2017-01-21] MEDS ORDERED: CEFEPIME INJ 2,000 MG in SODIUM CHLORIDE 0.9% INJ 100 ML IV STA (09:35)
[2017-01-21] MEDS ORDERED: AZITHROMYCIN INJ 500 MG in SODIUM CHLOR 0.9% 250 ML INJ 250 ML IV STA (09:35)
--- NOTE | 2017-01-21 09:42 | PD ---
HPI Chief Complaint: altered mental status, weakness Time Seen by Provider: 09:35 Travel History International Travel<30 days: No Contact w/Intl Traveler<30days: No History of Present Illness HPI 51-year-old male patient with history of previous stroke, electrolyte abnormalities, presents to the ER today brought in by mom because he is generally weak and appears disoriented today. Patient is fairly disoriented, was trying to pick things off the floor at a store according to mom, and is not able to give me any further history. Modifying Factors: None Associated Signs & Symptoms: General weakness, altered mental status Risk Factors: Previous stroke, electrolyte abnormalities PFSH Past Medical History Depression: Yes Cancer: No Cardiovascular Problems: Yes High Cholesterol: Yes COPD: Yes Cerebrovascular Accident: Yes (SLURRED SPEECH) Diminished Hearing: No Endocrine: No Genitourinary: No Immune Disorder: No Musculoskeletal: No Neurologic: Yes (BRAIN INJURY) Psychiatric: Yes Reproductive: No Respiratory: Yes Seizures: Yes Past Surgical History Tonsillectomy: Yes Social History Alcohol Use: No Tobacco Use: No (FORMER) Substance Use: No Allergies-Medications (Allergen,Severity, Reaction): Coded Allergies: No Known Allergies (Verified Allergy, Unknown, 01/01/17) Reported Meds & Prescriptions Reported Meds & Active Scripts Active Reported Symbicort Inh (Budesonide/Formoterol Fumarate) 160-4.5 Mcg/Act Aero 1 Puff INH Q12HR Ventolin Hfa 18 GM Inh (Albuterol Sulfate) 90 Mcg/Act Aer 1 Puff INH Q4H PRN Fluticasone Nasal [place] 50 Mcg/Act Naspr 50 Mcg EACH NARE BID 50 mcg/spray Xaquil Xr (Levomefolate Glucosamine) 30 Mg Tab Olanzapine 20 Mg Tab 20 Mg PO DAILY Potassium Chloride ER (Potassium Chloride) 20 Meq Tab 20 Meq PO TID Fluoxetine (Fluoxetine HCl) 20 Mg Tab 4 Cap PO DAILY Pravastatin 20 Mg Tab 20 Mg PO DAILY Levetiracetam 500 Mg Tab 500 Mg PO BID Sodium Chloride 1 Gram Tab 1 Gm PO DAILY Review of Systems ROS Limitations: Altered Mental Status Physical Exam Narrative GENERAL: Well-developed middle age white male patient currently in moderate distress, awake but disoriented. SKIN: Focused skin assessment warm/dry. HEAD: Atraumatic. Normocephalic. EYES: Pupils equal and round. No scleral icterus. No injection or drainage. ENT: No nasal bleeding or discharge. Mucous membranes pink and moist. NECK: Trachea midline. No JVD. CARDIOVASCULAR: Regular rate and rhythm. No murmur appreciated. RESPIRATORY: No accessory muscle use. Coarse bilaterally. Breath sounds equal bilaterally. GASTROINTESTINAL: Abdomen soft, non-tender, nondistended. Hepatic and splenic margins not palpable. MUSCULOSKELETAL: No obvious deformities. No clubbing. No cyanosis. No edema. NEUROLOGICAL: Awake and disoriented. No obvious cranial nerve deficits. Motor grossly within normal limits. Normal speech. PSYCHIATRIC: Disoriented Appropriate mood and affect; insight and judgment poor. Data Data Last Documented VS Vital Signs Date Time Temp Pulse Resp B/P (MAP) Pulse Ox O2 Delivery O2 Flow Rate FiO2 01/21/17 09:59 135 18 99/66 (77) 96 Room Air 01/21/17 09:25 102.9 Orders Orders Sepsis Workup Initiated (01/21/17 ) Complete Blood Count With Diff (01/21/17 09:27) Comprehensive Metabolic Panel (01/21/17 09:27) Lactic Acid Sepsis Protocol (01/21/17 09:27) Blood Culture (01/21/17 09:27) Iv Access Insert/Monitor (01/21/17 09:27) Oxygen Administration (01/21/17 09:27) Oximetry (01/21/17 09:27) Blood Glucose (01/21/17 09:27) Urinalysis - C+S If Indicated (01/21/17 09:35) Chest, Single Ap (01/21/17 09:35) Influenzae A/B Antigen (01/21/17 09:35) Acetaminophen (Tylenol) (01/21/17 09:45) Sodium Chlor 0.9% 1000 Ml Inj (Ns 1000 M (01/21/17 09:45) Cefepime Inj (Maxipime Inj) (01/21/17 09:35) Azithromycin Inj (Zithromax Inj) (01/21/17 09:35) Admit Order (Ed Use Only) (01/21/17 10:40) Labs Laboratory Tests Test 01/21/17 09:30 White Blood Count 13.3 TH/MM3 Red Blood Count 4.14 MIL/MM3 Hemoglobin 11.9 GM/DL Hematocrit 35.7 % Mean Corpuscular Volume 86.2 FL Mean Corpuscular Hemoglobin 28.7 PG Mean Corpuscular Hemoglobin Concent 33.3 % Red Cell Distribution Width 14.8 % Platelet Count 476 TH/MM3 Mean Platelet Volume 6.3 FL Neutrophils (%) (Auto) 89.4 % Lymphocytes (%) (Auto) 5.1 % Monocytes (%) (Auto) 4.3 % Eosinophils (%) (Auto) 0.1 % Basophils (%) (Auto) 1.1 % Neutrophils # (Auto) 11.9 TH/MM3 Lymphocytes # (Auto) 0.7 TH/MM3 Monocytes # (Auto) 0.6 TH/MM3 Eosinophils # (Auto) 0.0 TH/MM3 Basophils # (Auto) 0.1 TH/MM3 CBC Comment DIFF FINAL Differential Comment Blood Urea Nitrogen 13 MG/DL Creatinine 0.92 MG/DL Random Glucose 99 MG/DL Total Protein 7.7 GM/DL Albumin 3.5 GM/DL Calcium Level 8.7 MG/DL Alkaline Phosphatase 68 U/L Aspartate Amino Transf (AST/SGOT) 17 U/L Alanine Aminotransferase (ALT/SGPT) 20 U/L Total Bilirubin 0.5 MG/DL Sodium Level 137 MEQ/L Potassium Level 4.1 MEQ/L Chloride Level 104 MEQ/L Carbon Dioxide Level 23.8 MEQ/L Anion Gap 9 MEQ/L Estimat Glomerular Filtration Rate 86 ML/MIN Lactic Acid Level 2.1 mmol/L MDM Medical Decision Making Medical Screen Exam Complete: Yes Emergency Medical Condition: Yes Medical Record Reviewed: Yes Interpretation(s) Laboratory Tests Test 01/21/17 09:30 White Blood Count 13.3 TH/MM3 (4.0-11.0) Red Blood Count 4.14 MIL/MM3 (4.50-5.90) Hemoglobin 11.9 GM/DL (13.0-17.0) Hematocrit 35.7 % (39.0-51.0) Platelet Count 476 TH/MM3 (150-450) Mean Platelet Volume 6.3 FL (7.0-11.0) Neutrophils (%) (Auto) 89.4 % (16.0-70.0) Lymphocytes (%) (Auto) 5.1 % (9.0-44.0) Neutrophils # (Auto) 11.9 TH/MM3 (1.8-7.7) Lymphocytes # (Auto) 0.7 TH/MM3 (1.0-4.8) Estimat Glomerular Filtration Rate 86 ML/MIN (>89) Lactic Acid Level 2.1 mmol/L (0.4-2.0) Last 24 hours Impressions Chest X-Ray 01/21/17 0935 Signed Impressions: Service Date/Time: Saturday, January 21, 2017 09:50 - CONCLUSION: Perihilar and bibasilar infiltrates consistent with possible pneumonia. Clinical correlation is recommended. Aaron Pablo MD Differential Diagnosis General weakness, altered mental status, fever: Sepsis versus pneumonia versus acute intracranial processes versus electrolyte abnormalities versus dehydration Narrative Course Sepsis protocol initiated in the ER, IV antibiotics given considering history and exam. Chest x-ray confirms pneumonia. Electrolyte panel was unremarkable. At this point, case was discussed with Dr. Hylton for admission for further treatment. Diagnosis Primary Impression: Sepsis due to pneumonia Admitting Information Admitting Physician Requests: it Juanito Thompson MD Jan 21, 2017 09:42
[2017-01-21 09:43] LABS: AUTOMATED NEUTROPHIL # 11.9 TH/MM3 (1.8-7.7); BASOPHIL # 0.1 TH/MM3 (0-0.2); BASOPHIL % 1.1 % (0.0-2.0); EOSINOPHIL % 0.1 % (0.0-4.0); HEMATOCRIT 35.7 % (39.0-51.0); LYMPH % 5.1 % (9.0-44.0); LYMPHOCYTE # 0.7 TH/MM3 (1.0-4.8); MEAN CELL VOLUME 86.2 FL (80.0-100.0); MEAN CORPUSCULAR HEMOGLOBIN 28.7 PG (27.0-34.0); MEAN CORPUSCULAR HGB CONC 33.3 % (32.0-36.0); MONO % 4.3 % (0.0-8.0); NEUT % 89.4 % (16.0-70.0); PLATELET COUNT 476 TH/MM3 (150-450); RED BLOOD COUNT 4.14 MIL/MM3 (4.50-5.90); RED CELL DISTRIBUTION WIDTH 14.8 % (11.6-17.2); WHITE BLOOD COUNT 13.3 TH/MM3 (4.0-11.0)
[2017-01-21 09:44] LABS: HEMO FLAGS DIFF FINAL
[2017-01-21] MEDS ORDERED: ACETAMINOPHEN 325 MG TAB PO ONE (09:45)
[2017-01-21] MEDS ORDERED: SODIUM CHLOR 0.9% 1000 ML INJ 1,000 ML IV ONE ×3 (09:45→11:00)
[2017-01-21 09:56] LABS: BICARBONATE 23.8 MEQ/L (21.0-32.0)
[2017-01-21 09:58] LABS: BLOOD UREA NITROGEN 13 MG/DL (7-18)
[2017-01-21 09:59] LABS: ALT (GPT) 20 U/L (12-78); ANION GAP 9 MEQ/L (5-15); AST (GOT) 17 U/L (15-37); CHLORIDE 104 MEQ/L (98-107); GLOMERULAR FILTRATION RATE 86 ML/MIN (>89); POTASSIUM 4.1 MEQ/L (3.5-5.1); SODIUM (NA) 137 MEQ/L (136-145)
[2017-01-21 10:01] LABS: TOTAL BILIRUBIN ADULT 0.5 MG/DL (0.2-1.0)
[2017-01-21 10:02] LABS: ALKALINE PHOSPHATASE 68 U/L (45-117)
--- NOTE | 2017-01-21 10:19 | RADRPT ---
EXAM DATE/TIME: 01/21/2017 09:50 [facility] COMPARISON: CHEST SINGLE AP, January 01, 2017, 8:29. INDICATIONS : Fever, cough, altered mental status MEDICAL HISTORY : Stroke. SURGICAL HISTORY : None. ENCOUNTER: Initial ACUITY: 1 day PAIN SCORE: Non-responsive. LOCATION: Bilateral chest FINDINGS: Perihilar and bibasilar infiltrates are noted consistent with possible pneumonia. Clinical correlatio n is recommended. The heart is stable. CONCLUSION: Perihilar and bibasilar infiltrates consistent with possible pneumonia. Clinical correlation is recom mended. Aaron Pablo MD on January 21, 2017 at 10:16 Board Certified Radiologist. This report was verified electronically.
[2017-01-21] MEDS ORDERED: SODIUM CHLORIDE 0.9% FLUSH 10 ML FLUSH IV FLUSH PRN (11:00)
[2017-01-21] MEDS ORDERED: RESP: ALBUTEROL 2.5 MG/IPRATROPIUM 0.5 MG NEB (PRN) INH (11:00)
[2017-01-21] MEDS ORDERED: ACETAMINOPHEN 325 MG TAB PO PRN (11:00)
--- NOTE | 2017-01-21 11:06 | HHI.HP ---
[facility] Darin Edgar MD Admission Diagnosis sepsis/pneumonia/altered mental status Diagnoses: Travel History International Travel<30 Days: No Contact w/Intl Traveler <30 Da: No Traveled to Known Affected Are: No History of Present Illness This patient is a 51-year-old gentleman with a history of a closed head injury in the past as well as CVA and frontal lobe syndrome. He lives with his parents. The transplanted into the emergency room because he had been more confused and was disoriented for one day. He had a fever at home and when he was brought to the emergency room his temperature has been 102. He's also been tachycardic and hypotensive. Mother says that his blood pressure usually runs low but not lower than the low 100s. Here has been in the 80s. Patient notes no pain. He has been coughing more than usual for and sees they say he has a chronic coughing issue due to smoking). He has been treated for COPD in the past With steroids and bronchodilators. He was in the hospital in the end of December with frequent falls related to severe hypokalemia. His electrolytes appear stable at this time. The patient is recommended for admission to the hospital due t Review of Systems Constitutional: COMPLAINS OF: Fever, Chills, DENIES: Diaphoretic episodes, Fatigue, Weight gain, Weight loss, Dizziness, Change in appetite, Night Sweats Endocrine: DENIES: Heat/cold intolerance, Polydipsia, Polyuria, Polyphagia Eyes: DENIES: Blurred vision, Diplopia, Eye inflammation, Eye pain, Vision loss , Photosensitivity, Double Vision Ears, nose, mouth, throat: DENIES: Tinnitus, Hearing loss, Vertigo, Nasal discharge, Oral lesions, Throat pain, Hoarseness, Ear Pain, Running Nose, Epistaxis, Sinus Pain, Toothache, Odynophagia Respiratory: DENIES: Apneas, Cough, Snoring, Wheezing, Hemoptysis, Sputum production, Shortness of breath Cardiovascular: DENIES: Chest pain, Palpitations, Syncope, Dyspnea on Exertion , PND, Lower Extremity Edema, Orthopnea, Claudication Gastrointestinal: DENIES: Abdominal pain, Black stools, Bloody stools, Constipation, Diarrhea, Nausea, Vomiting, Difficulty Swallowing, Anorexia Genitourinary: DENIES: Sexual dysfunction, Urinary frequency, Urinary incontinence, Urgency, Hematuria, Dysuria, Nocturia, Penile Discharge, Testicular Pain, Testicular Swelling Musculoskeletal: DENIES: Joint pain, Muscle aches, Stiffness, Joint Swelling, Back pain, Neck pain Integumentary: DENIES: Abnormal pigmentation, Nail changes, Pruritus, Rash Hematologic/lymphatic: DENIES: Bruising, Lymphadenopathy Immunologic/allergic: DENIES: Eczema, Urticaria Neurologic: COMPLAINS OF: Abnormal gait, Seizures, DENIES: Headache, Localized weakness, Paresthesias, Speech Problems, Tremor, Poor Balance Psychiatric: DENIES: Anxiety, Confusion, Mood changes, Depression, Hallucinations, Agitation, Suicidal Ideation, Homicidal Ideation, Delusions Except as stated in HPI: all other systems reviewed are Neg Past Family Social History Past Medical History Brain injury Frontal lobe syndrome Seizure disorder copd Past Surgical History Tonsils Reported Medications Reviewed in the EMR, nothing new Allergies: Coded Allergies: No Known Allergies (Verified Allergy, Unknown, 01/01/17) Active Ordered Medications Reviewed in the EMR Family History mother is healthy Social History No current tobacco (quit several years ago) No alcohol Lives with his parents Physical Exam Vital Signs Vital Signs Date Time Temp Pulse Resp B/P (MAP) Pulse Ox O2 Delivery O2 Flow Rate FiO2 01/21/17 10:49 100.0 144 18 91/57 (68) 98 Room Air 01/21/17 09:59 135 18 99/66 (77) 96 Room Air 01/21/17 09:45 155 01/21/17 09:45 98 Room Air 01/21/17 09:44 136 20 114/67 (83) 98 Room Air 01/21/17 09:25 102.9 156 20 86/68 (74) 98 Physical Exam GENERAL: This is a well-nourished, well-developed patient, was coughing and diaphoretic SKIN: No rashes, ecchymoses or lesions. Cool and dry. HEAD: Atraumatic. Normocephalic. No temporal or scalp tenderness. EYES: Pupils equal round and reactive. Extraocular motions intact. No scleral icterus. No injection or drainage. ENT: Nose without bleeding, purulent drainage or septal hematoma. Throat without erythema, tonsillar hypertrophy or exudate. Uvula midline. Airway patent. NECK: Trachea midline. No JVD or lymphadenopathy. Supple, nontender, no meningeal signs. CARDIOVASCULAR: Regular rate and rhythm without murmurs, gallops, or rubs. RESPIRATORY: Decreased air flow bilaterally with scattered crackles at the base GASTROINTESTINAL: Abdomen soft, non-tender, nondistended. No hepato-splenomegaly , or palpable masses. No guarding. MUSCULOSKELETAL: Extremities without clubbing, cyanosis, or edema. No joint tenderness, effusion, or edema noted. No calf tenderness. Negative Homans sign bilaterally. NEUROLOGICAL: Awake and alert. Cranial nerves II through XII intact. Motor and sensory grossly within normal limits. Five out of 5 muscle strength in all muscle groups. Normal speech. Laboratory Laboratory Tests Test 01/21/17 09:30 White Blood Count 13.3 Red Blood Count 4.14 Hemoglobin 11.9 Hematocrit 35.7 Mean Corpuscular Volume 86.2 Mean Corpuscular Hemoglobin 28.7 Mean Corpuscular Hemoglobin Concent 33.3 Red Cell Distribution Width 14.8 Platelet Count 476 Mean Platelet Volume 6.3 Neutrophils (%) (Auto) 89.4 Lymphocytes (%) (Auto) 5.1 Monocytes (%) (Auto) 4.3 Eosinophils (%) (Auto) 0.1 Basophils (%) (Auto) 1.1 Neutrophils # (Auto) 11.9 Lymphocytes # (Auto) 0.7 Monocytes # (Auto) 0.6 Eosinophils # (Auto) 0.0 Basophils # (Auto) 0.1 CBC Comment DIFF FINAL Differential Comment Blood Urea Nitrogen 13 Creatinine 0.92 Random Glucose 99 Total Protein 7.7 Albumin 3.5 Calcium Level 8.7 Alkaline Phosphatase 68 Aspartate Amino Transf (AST/SGOT) 17 Alanine Aminotransferase (ALT/SGPT) 20 Total Bilirubin 0.5 Sodium Level 137 Potassium Level 4.1 Chloride Level 104 Carbon Dioxide Level 23.8 Anion Gap 9 Estimat Glomerular Filtration Rate 86 Lactic Acid Level 2.1 Date/Time Source Procedure Growth Status 01/21/17 09:30 Blood Peripheral Aerobic Blood Culture Pending Received 01/21/17 09:30 Blood Peripheral Anaerobic Blood Culture Pending Received 01/21/17 09:38 Nasal Washing Influenza Types A,B Antigen (ROBERT) - Final NEGATIVE FOR FLU A AND B ANTIGEN.... Complete Result Diagram: 01/21/1792901/21/17929 Imaging Last Impressions Chest X-Ray 01/21/17934 Signed Impressions: Service Date/Time: Saturday, January 21, 2017 09:50 - CONCLUSION: Perihilar and bibasilar infiltrates consistent with possible pneumonia. Clinical correlation is recommended. Aaron Pablo MD Septic Shock Reassessment Septic shock perfusion: reassessment completed Caprini VTE Risk Assessment Caprini VTE Risk Assessment: Mod/High Risk (score >= 2) Caprini Risk Assessment Model Point Value = 1 Point Value = 2 Point Value = 3 Point Value = 5 Age 41-60 Minor surgery BMI > 25 kg/m2 Swollen legs Varicose veins or History of unexplained or recurrent spontaneous Oral contraceptives or hormone replacement Sepsis (< 1 month) Serious lung disease, including pneumonia (< 1 month) Abnormal pulmonary function Acute myocardial infarction Congestive heart failure (< 1 month) History of inflammatory bowel disease Medical patient at bed rest Age 61-74 Arthroscopic surgery Major open surgery (> 45 min) Laparoscopic surgery (> 45 min) Malignancy Confined to bed (> 72 hours) Immobilizing plaster cast Central venous access Age >= 75 History of VTE Family history of VTE Factor V Leiden Prothrombin [id number] Lupus anticoagulant Anticardiolipin antibodies Elevated serum homocysteine Heparin-induced thrombocytopenia Other congenital or acquired thrombophilia Stroke (< 1 month) Elective arthroplasty Hip, pelvis, or leg fracture Acute spinal cord injury (< 1 month) Prophylaxis Regimen Total Risk Factor Score Risk Level Prophylaxis Regimen 0-1 Low Early ambulation 2 Moderate Order ONE of the following: *Sequential Compression Device (SCD) *Heparin 5000 units SQ BID 3-4 Higher Order ONE of the following medications: *Heparin 5000 units SQ TID *Enoxaparin/Lovenox 40 mg SQ daily (WT < 150 kg, CrCl > 30 mL/min) *Enoxaparin/Lovenox 30 mg SQ daily (WT < 150 kg, CrCl > 10-29 mL/min) *Enoxaparin/Lovenox 30 mg SQ BID (WT < 150 kg, CrCl > 30 mL/min) AND/OR *Sequential Compression Device (SCD) 5 or more Highest Order ONE of the following medications: *Heparin 5000 units SQ TID (Preferred with Epidurals) *Enoxaparin/Lovenox 40 mg SQ daily (WT < 150 kg, CrCl > 30 mL/min) *Enoxaparin/Lovenox 30 mg SQ daily (WT < 150 kg, CrCl > 10-29 mL/min) *Enoxaparin/Lovenox 30 mg SQ BID (WT < 150 kg, CrCl > 30 mL/min) AND *Sequential Compression Device (SCD) Assessment and Plan Problem List: (1) Sepsis due to pneumonia ICD Code: J18.9 - Pneumonia, unspecified organism; A41.9 - Sepsis, unspecified organism Plan: Patient with elevated heart rate, hypotension and fever with pneumonia as a source, present on admission Continue antibiotics for community-acquired pneumonia IV Rocephin and azithromycin Follow-up sputum, influenza (2) Seizure disorder ICD Code: G40.909 - Epilepsy, unspecified, not intractable, without status epilepticus Status: Acute Plan: continue Keppra (3) COPD (chronic obstructive pulmonary disease) ICD Code: J44.9 - Chronic obstructive pulmonary disease, unspecified Plan: With mild exacerbation, continue IV steroids, bronchodilators and continue treatment for pneumonia Assessment and Plan Plan of care to be determined by Hospital course Code Status Full code Discussed Condition With Patient, parents, ER M.D. Physician Certification 2 Midnight Certification Type: Admission for Inpatient Services Order for Inpatient Services The services are ordered in accordance with Medicare regulations or non- Medicare payer requirements, as applicable. In the case of services not specified as inpatient-only, they are appropriately provided as inpatient services in accordance with the 2-midnight benchmark. Estimated LOS (days): 4 4 days is the estimated time the patient will need to remain in the hospital, assuming treatment plan goals are met and no additional complications. Post-Hospital Plan: Barbra Castro MD Jan 21, 2017 11:06
[2017-01-21 11:30] LABS: BLOOD, URINE SMALL (NEG); GLUCOSE,URINE NEG (NEG); KETONE, URINE NEG (NEG); NITRITE,URINE NEG (NEG); PH, URINE 7.5 (5.0-8.5)
[2017-01-21 11:36] LABS: LACTIC ACID GHOST NOT REPORTABLE
[2017-01-21 11:40] LABS: METHOD OF COLLECTION CLEAN CATCH; URINE COLOR YELLOW (YELLW/STRAW)
[2017-01-21 11:41] LABS: CULTURE IF INDICATED CULT NOT INDICATED; RBC, URINE 15-19 /hpf (0-3); SQUAMOUS EPITHELIAL CELL URINE 0-5 /hpf (0-5); WBC, URINE 0-2 /hpf (0-5)
[2017-01-21 11:42] LABS: COMMENT (UR) CULT NOT INDICATED
[2017-01-21] MEDS: SODIUM CHLOR 0.9% 1000 ML INJ 1,000 ML IV SCH ×2 (11:58→23:05)
[2017-01-21] MEDS: methylPREDNISolone SOD SUCC 40 MG/1 ML VIAL IV PUSH SCH ×2 (11:58→23:05)
[2017-01-21] MEDS: ENOXAPARIN SODIUM 40 MG/0.4 ML SYRINGE SQ SCH (11:59)
[2017-01-21] MEDS: POTASSIUM CHLORIDE 20 MEQ CONTROLLED RELEASE TAB PO SCH ×2 (11:59→16:55)
[2017-01-21] MEDS: RESP: ALBUTEROL 2.5 MG/IPRATROPIUM 0.5 MG NEB (SCH) INH ×2 (13:40→20:04)
[2017-01-21] MEDS ORDERED: CHLORHEXIDINE GLUCONATE 2 % 1 PACK (2 CLOTHS)(extra cloths) TOPICAL PRN (20:15)
[2017-01-21] MEDS: levETIRAcetam 500 MG TAB PO SCH (20:24)
[2017-01-21] MEDS: guaiFENesin/CODEINE SYRUP 200 MG/20 MG/10 ML CUP PO PRN (20:24)
[2017-01-21] MEDS: SODIUM CHLORIDE 0.9% FLUSH 10 ML FLUSH IV FLUSH SCH (20:24)
[2017-01-21] MEDS: ONDANSETRON HCL 4 MG/2 ML VIAL IV PUSH PRN (21:49)
[2017-01-21] MEDS: cefTRIAXone INJ 1,000 MG in SODIUM CHLORIDE 0.9% INJ 100 ML IV SCH (22:17)
[2017-01-22] VITALS (19 sets, daily range): BP systolic 92–121; BP diastolic 58–85; PULSE 86–110; RESP 17–34; TEMP 97.3–98.5; O2SAT 95–96
[2017-01-22] MEDS: guaiFENesin/CODEINE SYRUP 200 MG/20 MG/10 ML CUP PO PRN ×2 (00:43→05:01)
[2017-01-22] MEDS: CHLORHEXIDINE GLUCONATE 2 % 1 PACK (2 CLOTHS)(taper/protocol) TOPICAL SCH (04:00)
[2017-01-22 04:35] LABS: AUTOMATED NEUTROPHIL # 19.5 TH/MM3 (1.8-7.7); EOSINOPHIL % 0.1 % (0.0-4.0); HEMATOCRIT 33.3 % (39.0-51.0); LYMPH % 4.9 % (9.0-44.0); MEAN CELL VOLUME 89.2 FL (80.0-100.0); MEAN CORPUSCULAR HEMOGLOBIN 29.1 PG (27.0-34.0); MEAN CORPUSCULAR HGB CONC 32.6 % (32.0-36.0); MONO % 1.3 % (0.0-8.0); NEUT % 93.7 % (16.0-70.0); PLATELET COUNT 445 TH/MM3 (150-450); RED BLOOD COUNT 3.74 MIL/MM3 (4.50-5.90); RED CELL DISTRIBUTION WIDTH 15.8 % (11.6-17.2); WHITE BLOOD COUNT 20.8 TH/MM3 (4.0-11.0)
[2017-01-22 04:46] LABS: POTASSIUM 4.4 MEQ/L (3.5-5.1)
[2017-01-22 04:48] LABS: HEMO FLAGS AUTO DIFF
[2017-01-22 04:49] LABS: BICARBONATE 19.8 MEQ/L (21.0-32.0)
[2017-01-22 07:10] LABS: PLATELET ESTIMATE SMEAR NORMAL (NORMAL)
[2017-01-22 07:11] LABS: PLATELET MORPHOLOGY NORMAL (NORMAL); SCAN/DIFF AUTO DIFF CONFIRMED
[2017-01-22] MEDS: RESP: ALBUTEROL 2.5 MG/IPRATROPIUM 0.5 MG NEB (SCH) INH ×3 (07:51→20:02)
[2017-01-22] MEDS: POTASSIUM CHLORIDE 20 MEQ CONTROLLED RELEASE TAB PO SCH ×3 (08:18→17:11)
[2017-01-22] MEDS: levETIRAcetam 500 MG TAB PO SCH ×2 (08:18→19:26)
[2017-01-22] MEDS: ONDANSETRON HCL 4 MG/2 ML VIAL IV PUSH PRN (08:19)
[2017-01-22] MEDS: SODIUM CHLORIDE 0.9% FLUSH 10 ML FLUSH IV FLUSH SCH ×2 (08:19→19:26)
[2017-01-22] MEDS: SODIUM CHLOR 0.9% 1000 ML INJ 1,000 ML IV SCH ×2 (08:19→17:11)
[2017-01-22] MEDS ORDERED: AZITHROMYCIN INJ 500 MG in SODIUM CHLOR 0.9% 250 ML INJ 250 ML IV SCH (11:00)
[2017-01-22] MEDS: methylPREDNISolone SOD SUCC 40 MG/1 ML VIAL IV PUSH SCH (12:09)
[2017-01-22] MEDS: ENOXAPARIN SODIUM 40 MG/0.4 ML SYRINGE SQ SCH (12:09)
--- NOTE | 2017-01-22 13:17 | HHI.PR ---
Subjective Remarks patient seen in room in follow-up for severe sepsis secondary to pneumonia. Currently tolerating antibiotics. Lactic acid improved. Heart rate improved. Leukocytosis elevated. Patient feels better. He is complaining of some insomnia overnight. Care plan discussed with PARKING WORKER as well as patient and mom in room Objective Vitals Vital Signs Date Time Temp Pulse Resp B/P (MAP) Pulse Ox O2 Delivery O2 Flow Rate FiO2 01/22/17 11:04 92 24 01/22/17 11:00 97 22 105/65 (78) 01/22/17 09:54 98 19 113/66 (82) 01/22/17 07:40 95 21 01/22/17 07:11 96 34 105/72 (83) 01/22/17 07:11 98.3 96 34 105/72 (83) 01/22/17 07:00 88 19 01/22/17 06:00 102 22 107/75 (86) 01/22/17 06:00 102 01/22/17 05:00 110 33 104/70 (81) 96 01/22/17 04:00 97.5 94 17 95/61 (72) 96 01/22/17 04:00 92 01/22/17 03:00 102 18 113/85 (94) 01/22/17 02:00 92 23 95/64 (74) 95 01/22/17 02:00 92 01/22/17 02:00 92 23 95/64 (74) 01/22/17 01:00 94 22 92/58 (69) 96 01/22/17 01:00 94 22 92/58 (69) 01/22/17 01:00 94 22 92/58 (69) 01/22/17 00:00 98 21 94/58 (70) 01/22/17 00:00 97.3 98 21 94/58 (70) 96 01/22/17 00:00 98 01/22/17 00:00 98 21 94/58 (70) 01/21/17 23:00 100 38 103/68 (80) 95 01/21/17 22:00 100 22 99/68 (78) 95 01/21/17 22:00 100 01/21/17 21:00 102 24 112/74 (87) 96 01/21/17 20:00 104 01/21/17 20:00 97.5 92 30 126/76 (93) 97 01/21/17 18:00 104 01/21/17 18:00 108 28 113/72 (86) 97 01/21/17 17:00 110 34 109/66 (80) 97 01/21/17 16:00 114 01/21/17 16:00 98.7 114 38 109/69 (82) 98 01/21/17 15:00 118 26 113/74 (87) 96 01/21/17 14:00 118 01/21/17 14:00 120 28 95/64 (74) 97 I/O 01/21/17 01/21/17 01/21/17 01/22/17 01/22/17 01/22/17 07:00 15:00 23:00 07:00 15:00 23:00 Intake Total 4350 ml 960 ml 1760 ml Output Total 300 ml 2500 ml 2250 ml Balance 4050 ml -1540 ml -490 ml Intake Oral 960 ml 960 ml IV Total 4350 ml 800 ml Output Urine Total 300 ml 2500 ml 2250 ml # Voids 1 10 # Bowel Movements 0 0 Result Diagram: 01/22/17 0410 01/22/17 0410 Imaging Last Impressions Chest X-Ray 01/21/17 0935 Signed Impressions: Service Date/Time: Saturday, January 21, 2017 09:50 - CONCLUSION: Perihilar and bibasilar infiltrates consistent with possible pneumonia. Clinical correlation is recommended. Aaron Pablo MD Objective Remarks GENERAL: This is a well-nourished, well-developed patient, appears much better and more oriented CARDIOVASCULAR: Regular rate and rhythm without murmurs, gallops, or rubs. RESPIRATORY: Clear to auscultation. Breath sounds equal bilaterally. No wheezes , rales, or rhonchi. GASTROINTESTINAL: Abdomen soft, non-tender, nondistended. Normal active bowel sounds MUSCULOSKELETAL: Extremities without clubbing, cyanosis, or edema. NEURO: Alert & Oriented x4 to person, place, time, situation. Moves all ext x4 A/P Problem List: (1) Sepsis due to pneumonia ICD Code: J18.9 - Pneumonia, unspecified organism; A41.9 - Sepsis, unspecified organism Plan: Improved sepsis IV Rocephin and azithromycin Unable to obtain sputum, flu negative (2) Seizure disorder ICD Code: G40.909 - Epilepsy, unspecified, not intractable, without status epilepticus Status: Acute Plan: continue Keppra (3) COPD (chronic obstructive pulmonary disease) ICD Code: J44.9 - Chronic obstructive pulmonary disease, unspecified Plan: With mild exacerbation, continue by mouth steroids, nebulized bronchodilators and continue treatment for pneumonia (4) Leukocytosis ICD Code: D72.829 - Elevated white blood cell count, unspecified Plan: From sepsis and also on steroids Follow trend with steroid taper [facility] Likely discharge in a.m. on oral antibiotics Barbra Hylton MD Jan 22, 2017 13:17
[2017-01-22] MEDS: predniSONE 20 MG TAB PO SCH (19:25)
[2017-01-22] MEDS ORDERED: diphenhydrAMINE HCL 50 MG CAP PO PRN (21:00)
[2017-01-22] MEDS ORDERED: ZOLPIDEM TARTRATE 10 MG TAB PO PRN (21:00)
[2017-01-22] MEDS: cefTRIAXone INJ 1,000 MG in SODIUM CHLORIDE 0.9% INJ 100 ML IV SCH (22:48)
[2017-01-23] VITALS: BP 137/77; PULSE 68; RESP 22; TEMP 97.6; O2SAT 97
[2017-01-23] MEDS: CHLORHEXIDINE GLUCONATE 2 % 1 PACK (2 CLOTHS)(taper/protocol) TOPICAL SCH (02:55)
[2017-01-23] MEDS: SODIUM CHLOR 0.9% 1000 ML INJ 1,000 ML IV SCH (02:55)
[2017-01-23 04:22] VITALS: BP 119/80; PULSE 69; RESP 22; TEMP 97.7; O2SAT 98
[2017-01-23 04:47] LABS: AUTOMATED NEUTROPHIL # 20.8 TH/MM3 (1.8-7.7); BASOPHIL % 0.1 % (0.0-2.0); EOSINOPHIL % 0.1 % (0.0-4.0); HEMATOCRIT 34.7 % (39.0-51.0); LYMPH % 5.6 % (9.0-44.0); LYMPHOCYTE # 1.3 TH/MM3 (1.0-4.8); MEAN CELL VOLUME 89.8 FL (80.0-100.0); MEAN CORPUSCULAR HEMOGLOBIN 28.6 PG (27.0-34.0); MEAN CORPUSCULAR HGB CONC 31.9 % (32.0-36.0); MONO % 3.2 % (0.0-8.0); PLATELET COUNT 469 TH/MM3 (150-450); RED BLOOD COUNT 3.86 MIL/MM3 (4.50-5.90); RED CELL DISTRIBUTION WIDTH 15.4 % (11.6-17.2); WHITE BLOOD COUNT 22.8 TH/MM3 (4.0-11.0)
[2017-01-23 04:51] LABS: HEMO FLAGS DIFF FINAL
[2017-01-23 04:54] LABS: POTASSIUM 4.6 MEQ/L (3.5-5.1)
[2017-01-23 04:57] LABS: BICARBONATE 20.8 MEQ/L (21.0-32.0)
[2017-01-23] MEDS: RESP: ALBUTEROL 2.5 MG/IPRATROPIUM 0.5 MG NEB (SCH) INH (07:28)
[2017-01-23 07:30] VITALS: O2SAT 98
[2017-01-23 08:00] VITALS: BP 106/72; PULSE 78; RESP 22; TEMP 97.9; O2SAT 98
[2017-01-23] MEDS: predniSONE 20 MG TAB PO SCH (08:11)
[2017-01-23] MEDS: levETIRAcetam 500 MG TAB PO SCH (08:11)
[2017-01-23] MEDS: POTASSIUM CHLORIDE 20 MEQ CONTROLLED RELEASE TAB PO SCH (08:11)
[2017-01-23] MEDS: SODIUM CHLORIDE 0.9% FLUSH 10 ML FLUSH IV FLUSH SCH (08:11)
[2017-01-23] MEDS ORDERED: LEVA750T9 PO (09:03)
--- NOTE | 2017-01-23 09:05 | HHI.DS ---
Discharge Summary Admission Date Jan 21, 2017 at 10:41 am Discharge Date: Jan 23, 2017 Admitting Diagnosis sepsis/pneumonia/altered mental status (1) Sepsis due to pneumonia ICD Code: J18.9 - Pneumonia, unspecified organism; A41.9 - Sepsis, unspecified organism Diagnosis: Principal (2) Seizure disorder ICD Code: G40.909 - Epilepsy, unspecified, not intractable, without status epilepticus Status: Acute (3) COPD (chronic obstructive pulmonary disease) ICD Code: J44.9 - Chronic obstructive pulmonary disease, unspecified (4) Leukocytosis ICD Code: D72.829 - Elevated white blood cell count, unspecified (5) CAP (community acquired pneumonia) ICD Code: J18.9 - Pneumonia, unspecified organism Diagnosis: Principal Procedures None. 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 He lives with his parents. The transplanted into the emergency room because he had been more confused and was disoriented for one day. He had a fever at home and when he was brought to the emergency room his temperature has been 102. He's also been tachycardic and hypotensive. Mother says that his blood pressure usually runs low but not lower than the low 100s. Here has been in the 80s. Patient notes no pain. He has been coughing more than usual for and sees they say he has a chronic coughing issue due to smoking). He has been treated for COPD in the past With steroids and bronchodilators. He was in the hospital in the end of December with frequent falls related to severe hypokalemia. His electrolytes appear stable at this time. The patient is recommended for admission to the hospital due t CBC/BMP: 01/23/17 0420 01/23/17 0420 Significant Findings Laboratory Tests Test 01/21/17 09:30 01/21/17 11:03 01/21/17 12:20 01/21/17 13:15 White Blood Count 13.3 TH/MM3 (4.0-11.0) Red Blood Count 4.14 MIL/MM3 (4.50-5.90) Hemoglobin 11.9 GM/DL (13.0-17.0) Hematocrit 35.7 % (39.0-51.0) Platelet Count 476 TH/MM3 (150-450) Mean Platelet Volume 6.3 FL (7.0-11.0) Neutrophils (%) (Auto) 89.4 % (16.0-70.0) Lymphocytes (%) (Auto) 5.1 % (9.0-44.0) Neutrophils # (Auto) 11.9 TH/MM3 (1.8-7.7) Lymphocytes # (Auto) 0.7 TH/MM3 (1.0-4.8) Estimat Glomerular Filtration Rate 86 ML/MIN (>89) Lactic Acid Level 2.1 mmol/L (0.4-2.0) 2.9 mmol/L (0.4-2.0) Urine Occult Blood SMALL (NEG) Urine RBC 15-19 /hpf (0-3) Test 01/22/17 04:10 01/23/17 04:20 White Blood Count 20.8 TH/MM3 (4.0-11.0) 22.8 TH/MM3 (4.0-11.0) Red Blood Count 3.74 MIL/MM3 (4.50-5.90) 3.86 MIL/MM3 (4.50-5.90) Hemoglobin 10.9 GM/DL (13.0-17.0) 11.1 GM/DL (13.0-17.0) Hematocrit 33.3 % (39.0-51.0) 34.7 % (39.0-51.0) Mean Platelet Volume 6.5 FL (7.0-11.0) 6.6 FL (7.0-11.0) Neutrophils (%) (Auto) 93.7 % (16.0-70.0) 91.0 % (16.0-70.0) Lymphocytes (%) (Auto) 4.9 % (9.0-44.0) 5.6 % (9.0-44.0) Neutrophils # (Auto) 19.5 TH/MM3 (1.8-7.7) 20.8 TH/MM3 (1.8-7.7) Random Glucose 122 MG/DL (74-106) 124 MG/DL (74-106) Chloride Level 111 MEQ/L (98-107) 108 MEQ/L (98-107) Carbon Dioxide Level 19.8 MEQ/L (21.0-32.0) 20.8 MEQ/L (21.0-32.0) Mean Corpuscular Hemoglobin Concent 31.9 % (32.0-36.0) Platelet Count 469 TH/MM3 (150-450) PE at Discharge GENERAL: This is a well-nourished, well-developed patient, appears much better and more oriented CARDIOVASCULAR: Regular rate and rhythm without murmurs, gallops, or rubs. RESPIRATORY: Clear to auscultation. Breath sounds equal bilaterally. No wheezes , rales, or rhonchi. GASTROINTESTINAL: Abdomen soft, non-tender, nondistended. Normal active bowel sounds MUSCULOSKELETAL: Extremities without clubbing, cyanosis, or edema. NEURO: Alert & Oriented x4 to person, place, time, situation. Moves all ext x4 Pt update on day of discharge Patient is doing well. On room air, eating breakfast. Parents are at bedside. No fever, chills. Hospital Course Mr. Jeffries is a very pleasant 81-year-old gentleman with a history of CVA, frontal lobe syndrome who was admitted to the hospital due to sepsis, pneumonia on 01/21/2017. On arrival his temperature was 10 2F and he was tachycardic and hypotensive. Patient received ceftriaxone and azithromycin for pneumonia. He was also given supportive treatment with bronchodilators and IV steroids. With antibiotics and supportive care he improved very well. After discussing with family members he was discharged on 01/23/2017. Patient was very happy to be able to go home. Pt Condition on Discharge: Good Discharge Disposition: Discharge Home Discharge Time: <= 30 minutes Discharge Instructions DIET: Follow Instructions for: As Tolerated, No Restrictions Activities you can perform: Regular-No Restrictions Follow up Referrals: PCP Follow-up - 10 Days New Medications: Levofloxacin (Levaquin) 750 Mg Tablet 750 MG PO DAILY for Infection, #7 TAB 0 Refills Continued Medications: Albuterol 18 GM Inh (Ventolin Hfa 18 GM Inh) 90 Mcg/Act Aer 1 PUFF INH Q4H PRN for SHORTNESS OF BREATH, #1 INHALER 0 Refills Budesonide-Formoterol Inh (Symbicort Inh) 160-4.5 Mcg/Act Aero 1 PUFF INH Q12HR, #1 INHALER 0 Refills Fluoxetine (Fluoxetine) 20 Mg Tab 4 CAP PO DAILY, #30 TAB 0 Refills Fluticasone Nasal [place] (Fluticasone Nasal [place]) 50 Mcg/Act Naspr 50 MCG EACH NARE BID for Allergy Management, #1 BOTTLE 0 Refills 50 mcg/spray Levetiracetam (Levetiracetam) 500 Mg Tab 500 MG PO BID for Control Seizures, #60 TAB 0 Refills Levomefolate Glucosamine (Xaquil Xr) 30 Mg Tab Olanzapine (Olanzapine) 20 Mg Tab 20 MG PO DAILY, #30 TAB 0 Refills Potassium Chloride ER (Potassium Chloride ER) 20 Meq Tab 20 MEQ PO TID for Electrolyte Replacement, #60 TAB 0 Refills Pravastatin (Pravastatin) 20 Mg Tab 20 MG PO DAILY for Cholesterol Management, #30 TAB 0 Refills Sodium Chloride (Sodium Chloride) 1 Gram Tab 1 GM PO DAILY for Electrolyte Replacement, TAB 0 Refills Ozzie Nails DO Jan 23, 2017 09:05
[2017-01-23 10:15] VITALS: BP 112/78; PULSE 96; RESP 19; TEMP 97.8
== END 2017-01-23 10:30 | disposition home or self-care (01) | DRG 871 ==
LOC: PHED 09:21 → PHEDA 10:41 → PHICU 11:35
PROVIDERS: ADMIT Hospitalist; ATTEND Hospitalist
DX: A41.9 Sepsis, unspecified organism (principal); J18.9 Pneumonia, unspecified organism; J44.0 Chronic obstructive pulmonary disease with (acute) lower respiratory infection; J44.1 Chronic obstructive pulmonary disease with (acute) exacerbation; G40.909 Epilepsy, unspecified, not intractable, without status epilepticus; F32.9 Major depressive disorder, single episode, unspecified; F07.0 Personality change due to known physiological condition; G47.00 Insomnia, unspecified; Z86.73 Personal history of transient ischemic attack (TIA), and cerebral infarction without residual deficits; Z87.820 Personal history of traumatic brain injury; Z87.891 Personal history of nicotine dependence
CPT/HCPCS: 71010; 80048; 80053; 81001; 83605; 85025; 87040; 87641; 87804; 94640; 94664; 96365; J0456; J0692; J0696; J1650; J2405; J2920; J7030; J7050; J7512

== ENCOUNTER 2017-02-03 17:02 | Emergency (ER) | payer MEDICARE, OTHER ==
[~2017-02-03] VITALS: Ht 165.1 cm; Wt 67.0 kg
[~2017-02-03 17:02] MED LIST changes: +LEVA750T9 PO
[2017-02-03 17:07] VITALS: BP 92/66; PULSE 90; RESP 18; TEMP 97.6; O2SAT 97
--- NOTE | 2017-02-03 17:15 | PD ---
HPI Chief Complaint: Syncope/Near-Syncope Time Seen by Provider: 17:14 Travel History International Travel<30 days: No Contact w/Intl Traveler<30days: No Traveled to known affect area: No History of Present Illness HPI 51-year-old male came to the emergency room with history of syncopal episode that was witnessed by his mother. Patient was eating when he seemed like he passed out. This is not the first time this has happened with this patient. He was in fact in the emergency room couple times for the exact same reason and I had seen him once for the in the recent past. Patient was also admitted for sepsis and discharged after long ago. Patient has history of TBI. His speech is slurred at this point. He is moving all 4 extremities. Patient also has history of seizures and is on Keppra. Mother is elderly and is not sure upon asking if patient had a seizure. Patient was hypertensive upon arrival. Systolic blood pressure was 92. PFSH Past Medical History Narrative Medical List of his past medical, surgical, social and family history is reviewed from the nursing note. Anxiety: Yes Depression: Yes Heart Rhythm Problems: Yes (CURRENTLY SINUS TACH) Cancer: No Cardiovascular Problems: Yes High Cholesterol: Yes Chest Pain: No Congestive Heart Failure: No COPD: No (PT AND MOTHER DENIES COPD) Cerebrovascular Accident: Yes (SLURRED SPEECH) Diminished Hearing: No Endocrine: No Genitourinary: No Immune Disorder: No Musculoskeletal: No Neurologic: Yes (BRAIN INJURY) Psychiatric: Yes Reproductive: No Respiratory: No Migraines: No Seizures: Yes Past Surgical History Tonsillectomy: Yes Social History Alcohol Use: No Tobacco Use: No (FORMER) Substance Use: Yes Allergies-Medications (Allergen,Severity, Reaction): Coded Allergies: No Known Allergies (Verified Allergy, Unknown, 02/03/17) Comments No known drug allergies. Reported Meds & Prescriptions Reported Meds & Active Scripts Active Reported Symbicort Inh (Budesonide/Formoterol Fumarate) 160-4.5 Mcg/Act Aero 1 Puff INH Q12HR Ventolin Hfa 18 GM Inh (Albuterol Sulfate) 90 Mcg/Act Aer 1 Puff INH Q4H PRN Xaquil Xr (Levomefolate Glucosamine) 30 Mg Tab Olanzapine 20 Mg Tab 20 Mg PO DAILY Potassium Chloride ER (Potassium Chloride) 20 Meq Tab 20 Meq PO TID Fluoxetine (Fluoxetine HCl) 20 Mg Tab 4 Cap PO DAILY Pravastatin 20 Mg Tab 20 Mg PO DAILY Levetiracetam 500 Mg Tab 500 Mg PO BID Sodium Chloride 1 Gram Tab 1 Gm PO DAILY Narrative Medication List of his home medications reviewed from the nursing note. Review of Systems Except as stated in HPI: all other systems reviewed are Neg Neurologic: Positive: Syncope Physical Exam Narrative GENERAL: Lethargic, slurred speech, unable to answer questions appropriately SKIN: Focused skin assessment warm/dry. HEAD: Atraumatic. Normocephalic. EYES: Pupils equal and round. No scleral icterus. No injection or drainage. ENT: No nasal bleeding or discharge. Mucous membranes pink and moist. NECK: Trachea midline. No JVD. CARDIOVASCULAR: Regular rate and rhythm. No murmur appreciated. RESPIRATORY: No accessory muscle use. Clear to auscultation. Breath sounds equal bilaterally. GASTROINTESTINAL: Abdomen soft, non-tender, nondistended. Hepatic and splenic margins not palpable. MUSCULOSKELETAL: No obvious deformities. No clubbing. No cyanosis. No edema. NEUROLOGICAL: GCS of 14. No obvious cranial nerve deficits. Motor grossly within normal limits. Slurred speech. PSYCHIATRIC: Appropriate mood and affect; insight and judgment normal. Data Data Last Documented VS Orders Orders Electrocardiogram (02/03/17 17:17) Complete Blood Count With Diff (02/03/17 17:17) Comprehensive Metabolic Panel (02/03/17 17:17) Creatine Kinase (Cpk) (02/03/17 17:17) Prothrombin Time / Inr (Pt) (02/03/17 17:17) Troponin I (02/03/17 17:17) Thyroid Stimulating Hormone (02/03/17 17:17) Urinalysis - C+S If Indicated (02/03/17 17:17) Lactic Acid Sepsis Protocol (02/03/17 17:17) Blood Culture (02/03/17 17:17) Chest, Single Ap (02/03/17 17:17) Ct Brain W/O Iv Contrast(Rout) (02/03/17 17:17) Blood Glucose (02/03/17 17:17) Ecg Monitoring (02/03/17 17:17) Iv Access Insert/Monitor (02/03/17 17:17) Oximetry (02/03/17 17:17) Sodium Chloride 0.9% Flush (Ns Flush) (02/03/17 17:30) Sodium Chlor 0.9% 1000 Ml Inj (Ns 1000 M (02/03/17 17:17) Drug Screen, Random Urine (02/03/17 17:17) Alcohol (Ethanol) (02/03/17 17:17) Tylenol (Acetaminophen) (02/03/17 17:17) Salicylates (Aspirin) (02/03/17 17:17) Potassium Chloride (Kcl) (02/03/17 18:30) Potassium Chlor 20 Meq Premix (Kcl 20 Me (02/03/17 18:30) Sodium Chlor 0.9% 1000 Ml Inj (Ns 1000 M (02/03/17 18:45) Ed Discharge Order (02/03/17 18:41) Magnesium (Mg) (02/03/17 17:45) Labs Laboratory Tests Test 02/03/17 17:45 02/03/17 17:56 White Blood Count 7.2 TH/MM3 Red Blood Count 4.03 MIL/MM3 Hemoglobin 11.2 GM/DL Hematocrit 34.5 % Mean Corpuscular Volume 85.7 FL Mean Corpuscular Hemoglobin 27.7 PG Mean Corpuscular Hemoglobin Concent 32.3 % Red Cell Distribution Width 14.1 % Platelet Count 538 TH/MM3 Mean Platelet Volume 5.9 FL Neutrophils (%) (Auto) 61.0 % Lymphocytes (%) (Auto) 31.9 % Monocytes (%) (Auto) 5.7 % Eosinophils (%) (Auto) 0.9 % Basophils (%) (Auto) 0.5 % Neutrophils # (Auto) 4.4 TH/MM3 Lymphocytes # (Auto) 2.3 TH/MM3 Monocytes # (Auto) 0.4 TH/MM3 Eosinophils # (Auto) 0.1 TH/MM3 Basophils # (Auto) 0.0 TH/MM3 CBC Comment DIFF FINAL Differential Comment Prothrombin Time 10.9 SEC Prothromb Time International Ratio 1.1 RATIO Blood Urea Nitrogen 13 MG/DL Creatinine 0.79 MG/DL Random Glucose 115 MG/DL Total Protein 7.3 GM/DL Albumin 3.0 GM/DL Calcium Level 8.6 MG/DL Magnesium Level 2.5 MG/DL Alkaline Phosphatase 72 U/L Aspartate Amino Transf (AST/SGOT) 12 U/L Alanine Aminotransferase (ALT/SGPT) 16 U/L Total Bilirubin 0.2 MG/DL Sodium Level 129 MEQ/L Potassium Level 2.8 MEQ/L Chloride Level 88 MEQ/L Carbon Dioxide Level 32.1 MEQ/L Anion Gap 9 MEQ/L Estimat Glomerular Filtration Rate 103 ML/MIN Lactic Acid Level 1.6 mmol/L Total Creatine Kinase 50 U/L Troponin I LESS THAN 0.02 NG/ML Thyroid Stimulating Hormone 3rd Gen 1.350 uIU/ML Salicylates Level LESS THAN 1.7 MG/DL Acetaminophen Level LESS THAN 2.0 MCG/ML Ethyl Alcohol Level LESS THAN 3 MG/DL Urine Collection Type CATH Urine Color YELLOW Urine Turbidity CLEAR Urine pH GREATER/EQUAL 9.0 Urine Specific [place] 1.017 Urine Protein NEG mg/dL Urine Glucose (UA) NEG mg/dL Urine Ketones NEG mg/dL Urine Occult Blood SMALL Urine Nitrite NEG Urine Bilirubin NEG Urine Leukocyte Esterase NEG Urine RBC 15-19 /hpf Microscopic Urinalysis Comment CULT NOT INDICATED Urine Opiates Screen NEG Urine Barbiturates Screen NEG Urine Amphetamines Screen NEG Urine Benzodiazepines Screen NEG Urine Cocaine Screen NEG Urine Cannabinoids Screen NEG MDM Medical Decision Making Medical Screen Exam Complete: Yes Emergency Medical Condition: Yes Medical Record Reviewed: Yes Interpretation(s) Twelve-lead EKG was reviewed by me. Normal sinus rhythm, left axis deviation, nonspecific ST-T wave changes. Heart rate of 67 bpm. Differential Diagnosis Seizure, postictal, sepsis, electrolyte abnormalities Narrative Course 6:20 PM blood test results are pending. CT scan of the head and chest x-rays within normal limit. Chest x-ray was actually read as resolution of the previous pneumonia. Patient was given a liter of IV fluid bolus. 6:30 PM chemistry results came back and patient's potassium and sodium is moderately low. However patient does have history of low potassium and sodium upon trending back. The values from today are something within the range that he has had in the past. I would prefer to place these electrolytes and then discharge the patient home. I've ordered for potassium replacement. In my opinion patient probably had a seizure episode which would explain his appearance of being lethargic and slurred speech which would need a postictal state. Procedures EKG Prior to Arrival: No Diagnosis Primary Impression: Syncope Qualified Codes: R55 - Syncope and collapse Additional Impressions: Post-ictal state Hyponatremia Hypokalemia Referrals: Primary Care Physician Additional Instructions: Please return to the ER if condition worsens or any other new concerns. Otherwise follow-up with your primary care. Med/Other Pt SpecificInfo: No Change to Meds Disposition: 01 DISCHARGE HOME Condition: Stable Sarah Sanches MD Feb 03, 2017 17:15
[2017-02-03] MEDS ORDERED: SODIUM CHLOR 0.9% 1000 ML INJ 1,000 ML IV SCH (17:17)
[2017-02-03 17:22] VITALS: O2SAT 97
[2017-02-03] MEDS ORDERED: SODIUM CHLORIDE 0.9% FLUSH 10 ML FLUSH IV FLUSH PRN (17:30)
--- NOTE | 2017-02-03 17:48 | RADRPT ---
EXAM DATE/TIME: 02/03/2017 17:25 [facility] COMPARISON: CHEST SINGLE AP, January 21, 2017, 9:50. INDICATIONS : Syncope. MEDICAL HISTORY : None. SURGICAL HISTORY : None. ENCOUNTER: Initial ACUITY: 1 day PAIN SCORE: 0/10 LOCATION: Bilateral chest FINDINGS: There is improvement in aeration of the lungs are basically resolution of previously seen parenchymal process bilaterally with minimal atelectasis in the right lung base. The rest of the examination has not significantly changed. CONCLUSION: Resolution of previously seen parenchymal process in the lungs. Con Rodriguez MD on February 03, 2017 at 17:44 Board Certified Radiologist. This report was verified electronically.
[2017-02-03 17:53] LABS: AUTOMATED NEUTROPHIL # 4.4 TH/MM3 (1.8-7.7); BASOPHIL % 0.5 % (0.0-2.0); EOSINOPHIL # 0.1 TH/MM3 (0-0.4); EOSINOPHIL % 0.9 % (0.0-4.0); HEMATOCRIT 34.5 % (39.0-51.0); HEMOGLOBIN 11.2 GM/DL (13.0-17.0); LYMPH % 31.9 % (9.0-44.0); LYMPHOCYTE # 2.3 TH/MM3 (1.0-4.8); MEAN CELL VOLUME 85.7 FL (80.0-100.0); MEAN CORPUSCULAR HEMOGLOBIN 27.7 PG (27.0-34.0); MEAN CORPUSCULAR HGB CONC 32.3 % (32.0-36.0); MEAN PLATELET VOLUME 5.9 FL (7.0-11.0); MONO % 5.7 % (0.0-8.0); MONOCYTE # 0.4 TH/MM3 (0-0.9); PLATELET COUNT 538 TH/MM3 (150-450); RED BLOOD COUNT 4.03 MIL/MM3 (4.50-5.90); RED CELL DISTRIBUTION WIDTH 14.1 % (11.6-17.2); WHITE BLOOD COUNT 7.2 TH/MM3 (4.0-11.0)
[2017-02-03 18:03] LABS: BILIRUBIN, URINE NEG (NEG); BLOOD, URINE SMALL (NEG); GLUCOSE,URINE NEG (NEG); KETONE, URINE NEG (NEG); NITRITE,URINE NEG (NEG); PH, URINE GREATER/EQUAL 9.0 (5.0-8.5); URINE LEUKOCYTE ESTERASE NEG (NEG)
[2017-02-03 18:08] LABS: INTERNATIONAL NORMALIZED RATIO 1.1 RATIO; PROTHROMBIN TIME - PATIENT 10.9 SEC (9.8-11.6)
[2017-02-03 18:10] LABS: RBC, URINE 15-19 /hpf (0-3); URINE COLOR YELLOW (YELLW/STRAW)
--- NOTE | 2017-02-03 18:13 | RADRPT ---
EXAM DATE/TIME: 02/03/2017 17:53 [facility] COMPARISON: CT BRAIN W/O CONTRAST, January 01, 2017, 8:41. INDICATIONS : Syncopal episode. RADIATION DOSE: 62.60 CTDIvol (mGy) MEDICAL HISTORY : Stroke. Seizures. Brain injury. SURGICAL HISTORY : None. ENCOUNTER: Initial ACUITY: 1 day PAIN SCALE: 0/10 LOCATION: cranial TECHNIQUE: Multiple contiguous axial images were obtained of the head. Using automated exposure control and adj ustment of the mA and/or kV according to patient size, radiation dose was kept as low as reasonably a chievable to obtain optimal diagnostic quality images. DICOM format image data is available electro nically for review and comparison. FINDINGS: There is no evidence for intracranial hemorrhage, mass effect, mass lesions, edema, or extra-axial fl uid collections. The visualized bony structures appear intact. There are no signs of acute infarcti on for technique. There is encephalomalacia in bilateral frontal lobes, left posterior temporal and p arietal lobes with slight left ventriculomegaly and chronic in nature. CONCLUSION: Stable chronic changes without hemorrhage or mass effect. Con Rodriguez MD on February 03, 2017 at 18:10 Board Certified Radiologist. This report was verified electronically.
[2017-02-03 18:25] LABS: ALKALINE PHOSPHATASE 72 U/L (45-117); ALT (GPT) 16 U/L (12-78); AST (GOT) 12 U/L (15-37); BICARBONATE 32.1 MEQ/L (21.0-32.0); BLOOD UREA NITROGEN 13 MG/DL (7-18); CALCIUM 8.6 MG/DL (8.5-10.1); CHLORIDE 88 MEQ/L (98-107); CREATININE 0.79 MG/DL (0.60-1.30); GLOMERULAR FILTRATION RATE 103 ML/MIN (>89); GLUCOSE,RANDOM 115 MG/DL (74-106); SODIUM (NA) 129 MEQ/L (136-145); TOTAL BILIRUBIN ADULT 0.2 MG/DL (0.2-1.0); TOTAL PROTEIN 7.3 GM/DL (6.4-8.2); TROPONIN I LESS THAN 0.02 NG/ML (0.02-0.05)
[2017-02-03 18:29] VITALS: BP 102/66; PULSE 58; RESP 18; O2SAT 100
[2017-02-03] MEDS ORDERED: POTASSIUM CHLORIDE 20 MEQ CONTROLLED RELEASE TAB PO ONE (18:30)
[2017-02-03] MEDS ORDERED: POTASSIUM CHLOR 20 MEQ PREMIX 100 ML IV ONE (18:30)
[2017-02-03] MEDS ORDERED: SODIUM CHLOR 0.9% 1000 ML INJ 1,000 ML IV ONE (18:45)
[2017-02-03 19:07] LABS: ACETAMINOPHEN LESS THAN 2.0 MCG/ML (10.0-30.0)
[2017-02-03 19:35] LABS: MAGNESIUM 2.5 MG/DL (1.5-2.5)
[2017-02-03 19:38] VITALS: BP 110/70; PULSE 66; RESP 20; TEMP 97.4; O2SAT 100
[2017-02-03 20:51] VITALS: BP 97/67
--- NOTE | 2017-02-03 21:50 | EKG ---
Date Performed: 02/03/2017 Time Performed: 17:22:26 PTAGE: 51 years EKG: Sinus rhythm NORMAL ECG PREVIOUS TRACING : 01/01/2017 08.12 DOCTOR: Jimmy Cabello Interpretating Date/Time 02/03/2017 21:49:00
== END 2017-02-03 20:55 | disposition home or self-care (01) ==
LOC: PHED 17:02
DX: R55 Syncope and collapse (principal); E87.1 Hypo-osmolality and hyponatremia; E87.6 Hypokalemia; R56.9 Unspecified convulsions; F41.9 Anxiety disorder, unspecified; E78.00 Pure hypercholesterolemia, unspecified; I69.928 Other speech and language deficits following unspecified cerebrovascular disease; Z87.820 Personal history of traumatic brain injury; Z87.891 Personal history of nicotine dependence
CPT/HCPCS: 70450; 71010; 80053; 80307; 81001; 82550; 83605; 83735; 84443; 84484; 85025; 85610; 87040; 93005; 96361; 96365; 96366; 99285; J3480; J7030

== ENCOUNTER 2017-04-24 10:51 | Emergency (ER) | payer OTHER ==
[~2017-04-24] VITALS: Ht 167.6 cm; Wt 65.8 kg
[~2017-04-24 10:51] MED LIST changes: -FLUT50SP EACH NARE; -LEVA750T9 PO
[2017-04-24 11:10] VITALS: BP 105/69; PULSE 79; RESP 18; TEMP 97.8; O2SAT 99
--- NOTE | 2017-04-24 11:30 | PD ---
HPI Chief Complaint: Abnormal Results Time Seen by Provider: 11:17 Travel History International Travel<30 days: No Contact w/Intl Traveler<30days: No Traveled to known affect area: No History of Present Illness HPI This 52-year-old male was told to come here for evaluation of an elevation of his blood ammonia. He had blood work done by Dr. Peralta yesterday which showed an ammonia level of 71. They prescribed lactulose. The patient is not aware of any history of cirrhosis. His mother says that he drinks a fair amount but the patient denies this. He does have a history of a traumatic brain injury. Mother says he gets confused at times. Does have trouble with his potassium on occasion. He has a history of seizures and is on Keppra. He takes potassium pills 3 times daily as well as sodium pills PFSH Past Medical History Anxiety: Yes Depression: Yes Heart Rhythm Problems: Yes Cancer: No Cardiovascular Problems: Yes High Cholesterol: Yes Chest Pain: No Congestive Heart Failure: No COPD: No (PT AND MOTHER DENIES COPD) Cerebrovascular Accident: Yes (RESIDUAL SLURRED SPEECH) Diminished Hearing: No Endocrine: No Genitourinary: No Immune Disorder: No Musculoskeletal: No Neurologic: Yes (BRAIN INJURY) Psychiatric: Yes Reproductive: No Respiratory: No Migraines: No Seizures: Yes ?: Not Past Surgical History Tonsillectomy: Yes Social History Alcohol Use: No Tobacco Use: No (FORMER) Substance Use: Yes Allergies-Medications (Allergen,Severity, Reaction): Coded Allergies: No Known Allergies (Verified Allergy, Unknown, 04/24/17) Reported Meds & Prescriptions Reported Meds & Active Scripts Active Reported Symbicort Inh (Budesonide/Formoterol Fumarate) 160-4.5 Mcg/Act Aero 1 Puff INH Q12HR Ventolin Hfa 18 GM Inh (Albuterol Sulfate) 90 Mcg/Act Aer 1 Puff INH Q4H PRN Xaquil Xr (Levomefolate Glucosamine) 30 Mg Tab Olanzapine 20 Mg Tab 20 Mg PO DAILY Potassium Chloride ER (Potassium Chloride) 20 Meq Tab 20 Meq PO TID Fluoxetine (Fluoxetine HCl) 20 Mg Tab 4 Cap PO DAILY Pravastatin 20 Mg Tab 20 Mg PO DAILY Levetiracetam 500 Mg Tab 500 Mg PO BID Sodium Chloride 1 Gram Tab 1 Gm PO DAILY Review of Systems General / Constitutional: No: Fever, Chills Eyes: No: Diploplia, Blurred Vision HENT: No: Headaches, Vertigo Physical Exam Narrative GENERAL: Well-developed male SKIN: Focused skin assessment warm/dry. HEAD: Atraumatic. Normocephalic. EYES: Pupils equal and round. No scleral icterus. No injection or drainage. ENT: No nasal bleeding or discharge. Mucous membranes pink and moist. NECK: Trachea midline. No JVD. CARDIOVASCULAR: Regular rate and rhythm. No murmur appreciated. RESPIRATORY: No accessory muscle use. Clear to auscultation. Breath sounds equal bilaterally. GASTROINTESTINAL: Abdomen soft, non-tender, nondistended. Hepatic and splenic margins not palpable. MUSCULOSKELETAL: No obvious deformities. No clubbing. No cyanosis. No edema. NEUROLOGICAL: Awake and alert. No obvious cranial nerve deficits. Motor grossly within normal limits. Normal speech. PSYCHIATRIC: Appropriate mood and affect; i limited insight l. Data Data Last Documented VS Vital Signs Date Time Temp Pulse Resp B/P (MAP) Pulse Ox O2 Delivery O2 Flow Rate FiO2 04/24/17 11:10 97.8 79 18 105/69 (81) 99 Orders Orders Complete Blood Count With Diff (04/24/17 11:27) Comprehensive Metabolic Panel (04/24/17 11:27) Prothrombin Time / Inr (Pt) (04/24/17 11:27) Act Partial Throm Time (Ptt) (04/24/17 11:27) Ammonia (04/24/17 11:27) Alcohol (Ethanol) (04/24/17 11:27) Potassium Chloride (Kcl) (04/24/17 12:45) Labs Laboratory Tests Test 04/24/17 12:08 White Blood Count 6.7 TH/MM3 Red Blood Count 4.36 MIL/MM3 Hemoglobin 12.7 GM/DL Hematocrit 37.7 % Mean Corpuscular Volume 86.5 FL Mean Corpuscular Hemoglobin 29.1 PG Mean Corpuscular Hemoglobin Concent 33.7 % Red Cell Distribution Width 13.8 % Platelet Count 329 TH/MM3 Mean Platelet Volume 6.3 FL Neutrophils (%) (Auto) 68.5 % Lymphocytes (%) (Auto) 24.2 % Monocytes (%) (Auto) 6.1 % Eosinophils (%) (Auto) 0.6 % Basophils (%) (Auto) 0.6 % Neutrophils # (Auto) 4.7 TH/MM3 Lymphocytes # (Auto) 1.6 TH/MM3 Monocytes # (Auto) 0.4 TH/MM3 Eosinophils # (Auto) 0.0 TH/MM3 Basophils # (Auto) 0.0 TH/MM3 CBC Comment DIFF FINAL Differential Comment Prothrombin Time 11.3 SEC Prothromb Time International Ratio 1.1 RATIO Activated Partial Thromboplast Time 30.9 SEC Blood Urea Nitrogen 9 MG/DL Creatinine 0.86 MG/DL Random Glucose 97 MG/DL Total Protein 7.2 GM/DL Albumin 3.6 GM/DL Calcium Level 8.6 MG/DL Alkaline Phosphatase 52 U/L Aspartate Amino Transf (AST/SGOT) 16 U/L Alanine Aminotransferase (ALT/SGPT) 14 U/L Total Bilirubin 0.5 MG/DL Sodium Level 127 MEQ/L Potassium Level 2.7 MEQ/L Chloride Level 87 MEQ/L Carbon Dioxide Level 34.7 MEQ/L Anion Gap 5 MEQ/L Estimat Glomerular Filtration Rate 93 ML/MIN Ammonia 16 MCMOL/L Ethyl Alcohol Level LESS THAN 3 MG/DL MDM Medical Decision Making Medical Screen Exam Complete: Yes Emergency Medical Condition: Yes Medical Record Reviewed: Yes Differential Diagnosis Differential includes hepatic encephalopathy, hyperammonemia Narrative Course His ammonia level today is 16. Of note his potassium is low at 2.6. He has been given supplemental potassium. The past prescription for her to take it 3 times a day and I have stressed the importance of him taking it. He will be released Diagnosis Primary Impression: Hypokalemia Additional Instructions: Take potassium as directed Disposition: 01 DISCHARGE HOME Condition: Critical Franck Metcalf MD Apr 24, 2017 11:30
[2017-04-24 12:17] LABS: AUTOMATED NEUTROPHIL # 4.7 TH/MM3 (1.8-7.7); BASOPHIL % 0.6 % (0.0-2.0); EOSINOPHIL % 0.6 % (0.0-4.0); HEMATOCRIT 37.7 % (39.0-51.0); HEMOGLOBIN 12.7 GM/DL (13.0-17.0); LYMPH % 24.2 % (9.0-44.0); LYMPHOCYTE # 1.6 TH/MM3 (1.0-4.8); MEAN CELL VOLUME 86.5 FL (80.0-100.0); MEAN CORPUSCULAR HEMOGLOBIN 29.1 PG (27.0-34.0); MEAN CORPUSCULAR HGB CONC 33.7 % (32.0-36.0); MEAN PLATELET VOLUME 6.3 FL (7.0-11.0); MONO % 6.1 % (0.0-8.0); MONOCYTE # 0.4 TH/MM3 (0-0.9); NEUT % 68.5 % (16.0-70.0); PLATELET COUNT 329 TH/MM3 (150-450); RED BLOOD COUNT 4.36 MIL/MM3 (4.50-5.90); RED CELL DISTRIBUTION WIDTH 13.8 % (11.6-17.2); WHITE BLOOD COUNT 6.7 TH/MM3 (4.0-11.0)
[2017-04-24 12:37] LABS: CHLORIDE 87 MEQ/L (98-107); SODIUM (NA) 127 MEQ/L (136-145)
[2017-04-24 12:38] LABS: INTERNATIONAL NORMALIZED RATIO 1.1 RATIO; PROTHROMBIN TIME - PATIENT 11.3 SEC (9.8-11.6)
[2017-04-24] MEDS ORDERED: POTASSIUM CHLORIDE 20 MEQ CONTROLLED RELEASE TAB PO ONE (12:45)
[2017-04-24 12:58] LABS: ALBUMIN 3.6 GM/DL (3.4-5.0); ALKALINE PHOSPHATASE 52 U/L (45-117); ALT (GPT) 14 U/L (12-78); AST (GOT) 16 U/L (15-37); BICARBONATE 34.7 MEQ/L (21.0-32.0); BLOOD UREA NITROGEN 9 MG/DL (7-18); CALCIUM 8.6 MG/DL (8.5-10.1); CREATININE 0.86 MG/DL (0.60-1.30); GLOMERULAR FILTRATION RATE 93 ML/MIN (>89); GLUCOSE,RANDOM 97 MG/DL (74-106); TOTAL BILIRUBIN ADULT 0.5 MG/DL (0.2-1.0); TOTAL PROTEIN 7.2 GM/DL (6.4-8.2)
== END 2017-04-24 14:06 | disposition home or self-care (01) ==
LOC: PHED 10:51
DX: E87.6 Hypokalemia (principal); E78.00 Pure hypercholesterolemia, unspecified; G40.909 Epilepsy, unspecified, not intractable, without status epilepticus; F41.8 Other specified anxiety disorders; Z87.820 Personal history of traumatic brain injury; Z86.79 Personal history of other diseases of the circulatory system; Z86.69 Personal history of other diseases of the nervous system and sense organs
CPT/HCPCS: 80053; 80307; 82140; 85025; 85610; 85730; 99283

== ENCOUNTER 2017-06-25 02:17 | Observation (INO) | payer OTHER ==
[2017-06-25] VITALS (17 sets, daily range): BP systolic 94–145; BP diastolic 55–97; PULSE 66–144; RESP 16–30; TEMP 96.8–98.7; O2SAT 95–100
[2017-06-25] MEDS ORDERED: SODIUM CHLOR 0.9% 1000 ML INJ 1,000 ML IV SCH (02:22)
[2017-06-25] MEDS ORDERED: SODIUM CHLORIDE 0.9% FLUSH 10 ML FLUSH IV FLUSH PRN ×2 (02:30→06:15)
--- NOTE | 2017-06-25 02:30 | PD ---
HPI Chief Complaint: altered mentation Time Seen by Provider: 02:22 Travel History International Travel<30 days: No Contact w/Intl Traveler<30days: No Traveled to known affect area: No History of Present Illness HPI 52-year-old male presents to the emergency department by EMS transport from home are reportedly family members found him wandering confused in the home. Patient has history of traumatic brain injury psychiatric illness and seizure disorder. Mother administers all of his medications. Family members identified that the bathroom appeared to be very disheveled with items all of the floor in the right disturbance and then found the patient standing in the middle of a room in the home with decreased level of consciousness and not speaking. Upon EMS arrival patient appeared to be just standing in a stuporous state but was able to follow commands and walk to the stretcher. No medications were administered and random glucose was 74. No evidence of any injury or trauma to the patient. Patient was mildly hypotensive upon their arrival with a heart rate of 118 but reportedly blood pressure normalized. Per paramedics family informed them that patient does not administer his own medications and does not drink alcohol. Reportedly patient has not been himself this past week and was seen by his psychiatrist and medications were adjusted but unclear as to whether they were added removed increased or decreased in dosing. Reportedly family members will be in route to the hospital provide more information. Patient is unable to provide any information. PFSH Past Medical History Narrative Medical review of medical record: Anxiety depression dyslipidemia CVA traumatic brain injury seizure disorder seizures; nursing notes reviewed Anxiety: Yes Depression: Yes Heart Rhythm Problems: Yes Cancer: No Cardiovascular Problems: Yes High Cholesterol: Yes Chest Pain: No Congestive Heart Failure: No Cerebrovascular Accident: Yes (RESIDUAL SLURRED SPEECH) Diminished Hearing: No Endocrine: No Genitourinary: No Immune Disorder: No Musculoskeletal: No Neurologic: Yes (BRAIN INJURY) Psychiatric: Yes Reproductive: No Respiratory: No Migraines: No Seizures: Yes Past Surgical History Tonsillectomy: Yes Social History Alcohol Use: No Tobacco Use: No (FORMER) Substance Use: Yes Allergies-Medications (Allergen,Severity, Reaction): Coded Allergies: No Known Allergies (Verified Allergy, Unknown, 04/24/17) Reported Meds & Prescriptions Reported Meds & Active Scripts Active Reported Lorazepam 2 Mg Tab 2 Mg PO Q8H PRN Symbicort Inh (Budesonide/Formoterol Fumarate) 160-4.5 Mcg/Act Aero 1 Puff INH Q12HR Ventolin Hfa 18 GM Inh (Albuterol Sulfate) 90 Mcg/Act Aer 1 Puff INH Q4H PRN Xaquil Xr (Levomefolate Glucosamine) 30 Mg Tab Olanzapine 20 Mg Tab 20 Mg PO DAILY Potassium Chloride ER (Potassium Chloride) 20 Meq Tab 20 Meq PO TID Fluoxetine (Fluoxetine HCl) 20 Mg Tab 4 Cap PO DAILY Pravastatin 20 Mg Tab 20 Mg PO DAILY Levetiracetam 500 Mg Tab 500 Mg PO BID Sodium Chloride 1 Gram Tab 1 Gm PO DAILY Review of Systems ROS Limitations: Clinical Condition, Altered Mental Status, Poor Historian Except as stated in HPI: all other systems reviewed are Neg Physical Exam Narrative GENERAL: Well-developed well-nourished male in no acute distress no respiratory distress mentation depressed; E3,V1,M5 SKIN: Warm and dry. HEAD: Normocephalic. EYES: No scleral icterus. No injection or drainage. NECK: Supple, trachea midline. No JVD or lymphadenopathy. CARDIOVASCULAR: Regular rate and rhythm without murmurs, gallops, or rubs. RESPIRATORY: Breath sounds equal bilaterally. No accessory muscle use. GASTROINTESTINAL: Abdomen soft, non-tender, nondistended. MUSCULOSKELETAL: No cyanosis, or edema. BACK: Nontender without obvious deformity. No CVA tenderness. Data Data Last Documented VS Vital Signs Date Time Temp Pulse Resp B/P (MAP) Pulse Ox O2 Delivery O2 Flow Rate FiO2 06/25/17 04:40 79 16 105/72 (83) 100 Room Air 06/25/17 03:45 97.5 Orders Orders Electrocardiogram (06/25/17 02:22) Ammonia (06/25/17 02:22) Complete Blood Count With Diff (06/25/17 02:22) Comprehensive Metabolic Panel (06/25/17 02:22) Creatine Kinase (Cpk) (06/25/17 02:22) Prothrombin Time / Inr (Pt) (06/25/17 02:22) Act Partial Throm Time (Ptt) (06/25/17 02:22) Troponin I (06/25/17 02:22) Thyroid Stimulating Hormone (06/25/17 02:22) Urinalysis - C+S If Indicated (06/25/17 02:22) Chest, Single Ap (06/25/17 02:22) Ct Brain W/O Iv Contrast(Rout) (06/25/17 02:22) Blood Glucose (06/25/17 02:22) Ecg Monitoring (06/25/17 02:22) Iv Access Insert/Monitor (06/25/17 02:22) Oximetry (06/25/17 02:22) Sodium Chloride 0.9% Flush (Ns Flush) (06/25/17 02:30) Sodium Chlor 0.9% 1000 Ml Inj (Ns 1000 M (06/25/17 02:22) Drug Screen, Random Urine (06/25/17 02:22) Alcohol (Ethanol) (06/25/17 02:22) Magnesium (Mg) (06/25/17 02:22) Restraints Non-Violent DAVI.Q3H (06/25/17 04:14) Arterial Blood Gas (Abg) (06/25/17 ) Sodium Chlor 0.9% 1000 Ml Inj (Ns 1000 M (06/25/17 04:30) Sodium Chlor 0.9% 1000 Ml Inj (Ns 1000 M (06/25/17 04:30) Naloxone Inj (Narcan Inj) (06/25/17 04:30) Tylenol (Acetaminophen) (06/25/17 06:01) Salicylates (Aspirin) (06/25/17 06:01) ^ Seizure Precautions (06/25/17 06:02) Place In Observation (06/25/17 ) Vital Signs (Adult) Q4H (06/25/17 06:02) Neuro Checks Q4H (06/25/17 06:02) Activity Oob With Assistance (06/25/17 06:02) Intake + Output DAVI.QSHIFT (06/25/17 06:02) Sodium Chlor 0.9% 1000 Ml Inj (Ns 1000 M (06/25/17 06:02) Sodium Chloride 0.9% Flush (Ns Flush) (06/25/17 06:15) Sodium Chloride 0.9% Flush (Ns Flush) (06/25/17 09:00) Comprehensive Metabolic Panel (06/26/17 06:00) Complete Blood Count With Diff (06/26/17 06:00) Pt Request For Service (06/25/17 06:02) Case Management Consult (06/25/17 06:02) Scd Bilateral/Knee High DAVI.BID (06/25/17 06:02) Narciso Bilateral/Knee High DAVI.QSHIFT (06/25/17 07:00) Acetaminophen (Tylenol) (06/25/17 06:15) Docusate Sodium-Senna (Cintia-Colace) (06/25/17 09:00) Magnesium Hydroxide Liq (Milk Of Magnesi (06/25/17 06:15) Sennosides (Senokot) (06/25/17 06:15) Bisacodyl Supp (Dulcolax Supp) (06/25/17 06:15) Lactulose Liq (Lactulose Liq) (06/25/17 06:15) Admit Order (Ed Use Only) (06/25/17 ) Hotel Reservation Agent / Telemetry DAVI.Q8H (06/25/17 06:08) Diet Npo (06/25/17 Breakfast) Activity Bed Rest (06/25/17 06:08) Notify Dr: Other (06/25/17 06:08) Labs Laboratory Tests Test 06/25/17 02:59 06/25/17 03:25 06/25/17 04:32 White Blood Count 10.2 TH/MM3 Red Blood Count 4.08 MIL/MM3 Hemoglobin 12.0 GM/DL Hematocrit 35.1 % Mean Corpuscular Volume 86.2 FL Mean Corpuscular Hemoglobin 29.4 PG Mean Corpuscular Hemoglobin Concent 34.1 % Red Cell Distribution Width 13.5 % Platelet Count 303 TH/MM3 Mean Platelet Volume 6.5 FL Neutrophils (%) (Auto) 68.2 % Lymphocytes (%) (Auto) 23.6 % Monocytes (%) (Auto) 5.8 % Eosinophils (%) (Auto) 2.2 % Basophils (%) (Auto) 0.2 % Neutrophils # (Auto) 7.0 TH/MM3 Lymphocytes # (Auto) 2.4 TH/MM3 Monocytes # (Auto) 0.6 TH/MM3 Eosinophils # (Auto) 0.2 TH/MM3 Basophils # (Auto) 0.0 TH/MM3 CBC Comment DIFF FINAL Differential Comment Prothrombin Time 12.1 SEC Prothromb Time International Ratio 1.2 RATIO Activated Partial Thromboplast Time 31.3 SEC Blood Urea Nitrogen 4 MG/DL Creatinine 0.69 MG/DL Random Glucose 80 MG/DL Total Protein 6.2 GM/DL Albumin 3.3 GM/DL Calcium Level 8.4 MG/DL Magnesium Level 1.8 MG/DL Alkaline Phosphatase 52 U/L Aspartate Amino Transf (AST/SGOT) 16 U/L Alanine Aminotransferase (ALT/SGPT) 19 U/L Total Bilirubin 0.4 MG/DL Sodium Level 132 MEQ/L Potassium Level 5.0 MEQ/L Chloride Level 99 MEQ/L Carbon Dioxide Level 28.4 MEQ/L Anion Gap 5 MEQ/L Estimat Glomerular Filtration Rate 120 ML/MIN Ammonia 27 MCMOL/L Total Creatine Kinase 187 U/L Troponin I LESS THAN 0.02 NG/ML Thyroid Stimulating Hormone 3rd Gen 1.390 uIU/ML Salicylates Level 8.4 MG/DL Acetaminophen Level LESS THAN 2.0 MCG/ML Ethyl Alcohol Level LESS THAN 3 MG/DL Urine Color YELLOW Urine Turbidity CLEAR Urine pH 8.0 Urine Specific [place] LESS/EQUAL 1.005 Urine Protein NEG mg/dL Urine Glucose (UA) NEG mg/dL Urine Ketones NEG mg/dL Urine Occult Blood SMALL Urine Nitrite NEG Urine Bilirubin NEG Urine Urobilinogen 0.2 MG/DL Urine Leukocyte Esterase NEG Urine RBC 4-9 /hpf Urine WBC 0-2 /hpf Urine Squamous Epithelial Cells 0-5 /hpf Urine Bacteria NONE /hpf Microscopic Urinalysis Comment CULT NOT INDICATED Urine Opiates Screen NEG Urine Barbiturates Screen NEG Urine Amphetamines Screen NEG Urine Benzodiazepines Screen NEG Urine Cocaine Screen NEG Urine Cannabinoids Screen NEG Blood Gas Puncture Site RT BRACHIAL Blood Gas Patient Temperature 98.6 Blood Gas HCO3 22 mmol/L Blood Gas Base Excess -2.2 mmol/L Blood Gas Oxygen Saturation 96 % Arterial Blood pH 7.41 Arterial Blood Partial Pressure CO2 35 mmHG Arterial Blood Partial Pressure O2 96 mmHG Arterial Blood Oxygen Content 15.7 Vol % Arterial Blood Carboxyhemoglobin 0.9 % Arterial Blood Methemoglobin 1.0 % Blood Gas Hemoglobin 11.6 G/DL Oxygen Delivery Device ROOM AIR Blood Gas Inspired Oxygen 21 % [facility] Medical Decision Making Medical Screen Exam Complete: Yes Emergency Medical Condition: Yes Medical Record Reviewed: Yes Interpretation(s) EKG normal sinus rhythm rate [address] elevation injury pattern or ectopy noted Troponin I: Less than 0.02 Ammonia: 27 not elevated Room air ABG pH 7.41 within normal range PCO2 mildly decreased at 35 PO2 96 with 96% O2 sat on room air bicarb is in normal range with base excess -[address] 06/25/17221 Signed Impressions: Service Date/Time: Sunday, June 25, 2017 02:57 - CONCLUSION: 1. Stable encephalomalacia again noted involving the left frontal and parietal lobes as well as the inferior right frontal lobe. 2. No acute hemorrhage or mass effect. Marcelo Roper MD Chest X-Ray 06/25/17221 Signed Impressions: Service Date/Time: Sunday, June 25, 2017 02:32 - CONCLUSION: No acute disease. Marcelo Roper MD CBC & BMP Diagram 06/25/17 02:59 Total Protein 6.2 L, Albumin 3.3 L, Calcium Level 8.4 L, Magnesium Level 1.8, Alkaline Phosphatase 52, Aspartate Amino Transf (AST/SGOT) 16, Alanine Aminotransferase (ALT/SGPT) 19, Total Bilirubin 0.4 Vital Signs Date Time Temp Pulse Resp B/P (MAP) Pulse Ox O2 Delivery O2 Flow Rate FiO2 06/25/17 04:40 79 16 105/72 (83) 100 Room Air 06/25/17 03:45 97.5 78 16 94/55 (68) 97 Room Air 06/25/17 02:45 97 Room Air 06/25/17 02:45 97 Room Air 06/25/17 02:26 97.4 91 16 98/67 (77) 98 Urine drug screen: Negative Serum alcohol less than 3, not elevated Differential Diagnosis Altered mental status, seizure, substance ingestion, TIA, CVA, ICH, arrhythmia, sepsis Narrative Course @ 5:10 patient awake with garbled speech; voicing no complaint; then falls back to sleep @ 5:35 mother is at the bedside; reports she thinks he took too much of his Zyprexa medication. Mother states that 5 of the Zyprexa tablets 20 mg or is missing from his medication bottle. Mother also states he was recently restarted on Ativan. She does not know if he is supposed to be taking this medication but states that his neurologist, Dr Peralta, has re-prescribed it. Mother states she was at home when this episode occurred that he had had urinary incontinence and she changed his clothes prior to paramedics arriving and prior to being transported to the emergency department. She states she was very weak and was having difficulty standing independently on his own so she and her helped him to a chair and when paramedics arrived he was sitting in a chair. Patient appeared stuporous and standing at home. Patient is much more awake at this time but she states he is not near his baseline. Even though patient has traumatic brain injury from previous fall and stroke he is usually more cooperative and coherent and functional than he has currently. Mother states that she tries to control the dispensing of his medications but sometimes he finds them when she has reportedly hidden them. Patient's medications were not in her hiding spot when she found him. Patient's mother counted all medications and only 5 of the Zyprexa were missing. Mother also reports no recent illness no recent febrile illness no recent injury or fall. @ 6:10 patient now admits to taking zyprexa; denies suicidal ideation poison control contacted --6 hour post-ingestion --at risk for toxicity Patient's case discussed with medicine will admit for observation to stepdown unit in view of possible actual ingestion of 20 mg 5 tablets of Zyprexa. Critical Care Narrative Aggregate critical care time was 35 minutes. Time to perform other separately billable procedures was not included in the critical care time. My time did not include minutes spent treating any other patients simultaneously or on activities that did not directly contribute to the patient's treatment. The services I provided to this patient were to treat and/or prevent clinically significant deterioration that could result in: Arrhythmia, respiratory arrest, I provided critical care services requiring my management, as noted below: Chart data review, documentation time, medication orders and management, vital sign assessments/reviewing monitor data, ordering and reviewing lab tests, ordering and interpreting/reviewing x-rays and diagnostic studies, care of the patient and discussion of the patient with the admitting physicians. Physician Communication Physician Communication discussed with [facility] service --OBS Diagnosis Primary Impression: Altered mental status, unspecified Qualified Codes: R41.82 - Altered mental status, unspecified Additional Impressions: Seizure disorder Overdose Qualified Codes: T50.901A - Poisoning by unspecified drugs, medicaments and biological substances, accidental (unintentional), initial encounter Admitting Information Admitting Physician Requests: Observation Rhonda Eddy MD June 25, 2017 02:30
--- NOTE | 2017-06-25 03:00 | RADRPT ---
EXAM DATE/TIME: 06/25/2017 02:32 [facility] COMPARISON: CHEST SINGLE AP, February 03, 2017, 17:25. INDICATIONS : Seizure. MEDICAL HISTORY : None. SURGICAL HISTORY : None. ENCOUNTER: Initial ACUITY: 1 day PAIN SCORE: Non-responsive. LOCATION: Bilateral chest FINDINGS: A single view of the chest demonstrates the lungs to be symmetrically aerated without evidence of mas s, infiltrate or effusion. The cardiomediastinal contours are unremarkable. Osseous structures are intact. CONCLUSION: No acute disease. Marcelo Roper MD on June 25, 2017 at 2:58 Board Certified Radiologist. This report was verified electronically.
[2017-06-25 03:08] LABS: BASOPHIL % 0.2 % (0.0-2.0); EOSINOPHIL # 0.2 TH/MM3 (0-0.4); EOSINOPHIL % 2.2 % (0.0-4.0); HEMATOCRIT 35.1 % (39.0-51.0); LYMPH % 23.6 % (9.0-44.0); LYMPHOCYTE # 2.4 TH/MM3 (1.0-4.8); MEAN CELL VOLUME 86.2 FL (80.0-100.0); MEAN CORPUSCULAR HEMOGLOBIN 29.4 PG (27.0-34.0); MEAN CORPUSCULAR HGB CONC 34.1 % (32.0-36.0); MEAN PLATELET VOLUME 6.5 FL (7.0-11.0); MONO % 5.8 % (0.0-8.0); MONOCYTE # 0.6 TH/MM3 (0-0.9); NEUT % 68.2 % (16.0-70.0); PLATELET COUNT 303 TH/MM3 (150-450); RED BLOOD COUNT 4.08 MIL/MM3 (4.50-5.90); RED CELL DISTRIBUTION WIDTH 13.5 % (11.6-17.2); WHITE BLOOD COUNT 10.2 TH/MM3 (4.0-11.0)
[2017-06-25 03:18] LABS: INTERNATIONAL NORMALIZED RATIO 1.2 RATIO; PROTHROMBIN TIME - PATIENT 12.1 SEC (9.8-11.6)
[2017-06-25 03:21] LABS: CHLORIDE 99 MEQ/L (98-107); SODIUM (NA) 132 MEQ/L (136-145)
--- NOTE | 2017-06-25 03:22 | RADRPT ---
EXAM DATE/TIME: 06/25/2017 02:57 [facility] COMPARISON: CT BRAIN W/O CONTRAST, February 03, 2017, 17:53. INDICATIONS : Altered mental status. Possible seizure. RADIATION DOSE: 39.87 CTDIvol (mGy) MEDICAL HISTORY : Cerebrovascular disease. Seizures. Traumatic brain injury. SURGICAL HISTORY : None. ENCOUNTER: Initial ACUITY: 1 week PAIN SCALE: Non-responsive LOCATION: cranial TECHNIQUE: Multiple contiguous axial images were obtained of the head. Using automated exposure control and adj ustment of the mA and/or kV according to patient size, radiation dose was kept as low as reasonably a chievable to obtain optimal diagnostic quality images. DICOM format image data is available electro nically for review and comparison. FINDINGS: CEREBRUM: Stable encephalomalacia is again noted involving portions of the left frontal and parietal lobes. The re is encephalomalacia involving the inferior right frontal lobe as well. There is dilatation of left lateral ventricle with ex vacuo change involving the occipital horn. This is not significantly retana ed.. No evidence of midline shift, mass lesion, hemorrhage or acute infarction. No extra-axial flui d collections are seen. POSTERIOR FOSSA: The cerebellum and brainstem are intact. The 4th ventricle is midline. The cerebellopontine angle i s unremarkable. EXTRACRANIAL: The visualized portion of the orbits is intact. SKULL: The calvaria is intact. No evidence of skull fracture. CONCLUSION: 1. Stable encephalomalacia again noted involving the left frontal and parietal lobes as well as the i nferior right frontal lobe. 2. No acute hemorrhage or mass effect. Marcelo Roper MD on June 25, 2017 at 3:18 Board Certified Radiologist. This report was verified electronically.
[2017-06-25 03:24] LABS: ALBUMIN 3.3 GM/DL (3.4-5.0); BICARBONATE 28.4 MEQ/L (21.0-32.0); CALCIUM 8.4 MG/DL (8.5-10.1)
[2017-06-25 03:25] LABS: BLOOD UREA NITROGEN 4 MG/DL (7-18); GLUCOSE,RANDOM 80 MG/DL (74-106); MAGNESIUM 1.8 MG/DL (1.5-2.5)
[2017-06-25 03:27] LABS: ALT (GPT) 19 U/L (12-78); AST (GOT) 16 U/L (15-37); CREATININE 0.69 MG/DL (0.60-1.30); GLOMERULAR FILTRATION RATE 120 ML/MIN (>89)
[2017-06-25 03:29] LABS: TOTAL BILIRUBIN ADULT 0.4 MG/DL (0.2-1.0); TOTAL PROTEIN 6.2 GM/DL (6.4-8.2)
[2017-06-25 03:30] LABS: ALKALINE PHOSPHATASE 52 U/L (45-117)
[2017-06-25 03:33] LABS: BILIRUBIN, URINE NEG (NEG); BLOOD, URINE SMALL (NEG); GLUCOSE,URINE NEG (NEG); KETONE, URINE NEG (NEG); NITRITE,URINE NEG (NEG); URINE COLOR YELLOW (YELLW/STRAW); URINE LEUKOCYTE ESTERASE NEG (NEG)
[2017-06-25 03:33] LABS: TROPONIN I LESS THAN 0.02 NG/ML (0.02-0.05)
[2017-06-25 03:49] LABS: SQUAMOUS EPITHELIAL CELL URINE 0-5 /hpf (0-5); WBC, URINE 0-2 /hpf (0-5)
[2017-06-25] MEDS ORDERED: NALOXONE HCL 0.4 MG/ML AMP IV PUSH ONE (04:30)
[2017-06-25] MEDS ORDERED: SODIUM CHLOR 0.9% 1000 ML INJ 1,000 ML IV ONE ×2 (04:30)
[2017-06-25] MEDS ORDERED: SENNOSIDES 8.6 MG TAB PO PRN (06:15)
[2017-06-25] MEDS ORDERED: ACETAMINOPHEN 325 MG TAB PO PRN (06:15)
[2017-06-25] MEDS ORDERED: MAGNESIUM HYDROXIDE SUSP 30 ML CUP PO PRN (06:15)
[2017-06-25] MEDS ORDERED: LACTULOSE SYRUP 20 GM/30 ML CUP PO PRN (06:15)
[2017-06-25] MEDS ORDERED: BISACODYL 10 MG SUPP RECTAL PRN (06:15)
[2017-06-25] MEDS ORDERED: lorazapam PO (06:24)
[2017-06-25] MEDS: SODIUM CHLOR 0.9% 1000 ML INJ 1,000 ML IV SCH ×2 (06:45→16:02)
[2017-06-25] MEDS ORDERED: LORazepam 2 MG/ML VIAL IV PUSH ONE ×2 (07:00→22:15)
[2017-06-25] MEDS ORDERED: levETIRAcetam INJ 500 MG in SODIUM CHLORIDE 0.9% INJ 100 ML IV ONE (07:15)
[2017-06-25] MEDS ORDERED: LORA2TAB7 PO (07:15)
[2017-06-25] MEDS ORDERED: LORazepam 2 MG TAB PO ONE (07:15)
--- NOTE | 2017-06-25 08:00 | EKG ---
Date Performed: 06/25/2017 Time Performed: 02:35:15 PTAGE: 52 years EKG: Sinus rhythm NORMAL ECG PREVIOUS TRACING : 02/03/2017 17.22 DOCTOR: Krishan Logan Interpretating Date/Time 06/25/2017 07:59:07
[2017-06-25] MEDS: SODIUM CHLORIDE 0.9% FLUSH 10 ML FLUSH IV FLUSH SCH ×2 (09:00→20:32)
[2017-06-25] MEDS: DOCUSATE SODIUM 50 MG/SENNA 8.6 MG TAB PO SCH ×2 (09:00→20:32)
[2017-06-25] MEDS ORDERED: OLANZapine 10 MG TAB PO SCH (13:00)
[2017-06-25] MEDS ORDERED: ALBUTEROL SULFATE 90 MCG/ACT HFA 8 GM INHALER INH PRN (13:00)
[2017-06-25] MEDS: FLUoxetine HCL 20 MG CAP PO SCH (13:41)
[2017-06-25] MEDS: levETIRAcetam 500 MG TAB PO SCH ×2 (13:41→20:32)
--- NOTE | 2017-06-25 14:05 | HHI.HP ---
[facility] Service [facility] Primary Care Physician Darin Edgar MD Admission Diagnosis AMS; seizure; overdose-zyprexa Diagnoses: Travel History International Travel<30 Days: No Contact w/Intl Traveler <30 Da: No Traveled to Known Affected Are: No History of Present Illness Patient is a 52-year-old gentleman with a history of traumatic brain injury who came to the hospital with his parents after he was acting strangely at home. Patient requires quite a bit of care from his family members and was found by them in a disheveled room with decreased level of consciousness from his baseline. Patient was seen by 911 services at the site and found to have normal blood sugar. There is some history of a possible Zyprexa overdose by the patient. He takes Zyprexa for seizures. Patient was also increased on his Ativan by his neurology's office. He has not had any fevers or chills are dysuria. This time the patient is seen in the ICU. Patient has become more alert although he is still not at his baseline. He will require further evaluation and treatment in the hospital Review of Systems Constitutional: DENIES: Diaphoretic episodes, Fatigue, Fever, Weight gain, Weight loss, Chills, Dizziness, Change in appetite, Night Sweats Endocrine: DENIES: Heat/cold intolerance, Polydipsia, Polyuria, Polyphagia Eyes: DENIES: Blurred vision, Diplopia, Eye inflammation, Eye pain, Vision loss , Photosensitivity, Double Vision Ears, nose, mouth, throat: DENIES: Tinnitus, Hearing loss, Vertigo, Nasal discharge, Oral lesions, Throat pain, Hoarseness, Ear Pain, Running Nose, Epistaxis, Sinus Pain, Toothache, Odynophagia Respiratory: DENIES: Apneas, Cough, Snoring, Wheezing, Hemoptysis, Sputum production, Shortness of breath Cardiovascular: DENIES: Chest pain, Palpitations, Syncope, Dyspnea on Exertion , PND, Lower Extremity Edema, Orthopnea, Claudication Gastrointestinal: DENIES: Abdominal pain, Black stools, Bloody stools, Constipation, Diarrhea, Nausea, Vomiting, Difficulty Swallowing, Anorexia Genitourinary: DENIES: Sexual dysfunction, Urinary frequency, Urinary incontinence, Urgency, Hematuria, Dysuria, Nocturia, Penile Discharge, Testicular Pain, Testicular Swelling Musculoskeletal: DENIES: Joint pain, Muscle aches, Stiffness, Joint Swelling, Back pain, Neck pain Integumentary: DENIES: Abnormal pigmentation, Nail changes, Pruritus, Rash Hematologic/lymphatic: DENIES: Bruising, Lymphadenopathy Immunologic/allergic: DENIES: Eczema, Urticaria Neurologic: DENIES: Abnormal gait, Headache, Localized weakness, Paresthesias, Seizures, Speech Problems, Tremor, Poor Balance Psychiatric: COMPLAINS OF: Anxiety, DENIES: Confusion, Mood changes, Depression , Hallucinations, Agitation, Suicidal Ideation, Homicidal Ideation, Delusions Except as stated in HPI: all other systems reviewed are Neg Past Family Social History Past Medical History History of traumatic brain injury COPD Hyperlipidemia Seizure disorder Past Surgical History Tonsillectomy Reported Medications Reviewed in the EMR, patient had increased Ativan because of increased agitation Allergies: Coded Allergies: No Known Allergies (Verified Allergy, Unknown, 04/24/17) Active Ordered Medications Reviewed in the EMR Family History Hypertension Social History lives with family Physical Exam Vital Signs Vital Signs Date Time Temp Pulse Resp B/P (MAP) Pulse Ox O2 Delivery O2 Flow Rate FiO2 06/25/17 12:00 97.2 108 22 126/74 (91) 06/25/17 09:45 66 06/25/17 09:23 97.5 94 24 118/71 (87) 100 06/25/17 08:45 93 18 118/82 (94) 99 06/25/17 07:48 99 Room Air 06/25/17 06:45 98.7 96 16 119/69 (86) 99 Room Air 06/25/17 06:24 85 16 123/75 (91) 98 Room Air 06/25/17 04:40 79 16 105/72 (83) 100 Room Air 06/25/17 03:45 97.5 78 16 94/55 (68) 97 Room Air 06/25/17 02:45 97 Room Air 06/25/17 02:45 97 Room Air 06/25/17 02:26 97.4 91 16 98/67 (77) 98 Physical Exam GENERAL: This is a well-nourished, well-developed patient, he is rather somnolent after Ativan which was given for impulsive erratic behavior SKIN: No rashes, ecchymoses or lesions. Cool and dry. HEAD: Atraumatic. Normocephalic. No temporal or scalp tenderness. EYES: Pupils equal round and reactive. Extraocular motions intact. No scleral icterus. No injection or drainage. ENT: Nose without bleeding, purulent drainage or septal hematoma. Throat without erythema, tonsillar hypertrophy or exudate. Uvula midline. Airway patent. NECK: Trachea midline. No JVD or lymphadenopathy. Supple, nontender, no meningeal signs. CARDIOVASCULAR: Regular rate and rhythm without murmurs, gallops, or rubs. RESPIRATORY: Clear to auscultation. Breath sounds equal bilaterally. No wheezes , rales, or rhonchi. GASTROINTESTINAL: Abdomen soft, non-tender, nondistended. No hepato-splenomegaly , or palpable masses. No guarding. MUSCULOSKELETAL: Extremities without clubbing, cyanosis, or edema. No joint tenderness, effusion, or edema noted. No calf tenderness. Negative Homans sign bilaterally. NEUROLOGICAL: Awake and alert. Cranial nerves II through XII intact. Motor and sensory grossly within normal limits. Five out of 5 muscle strength in all muscle groups. Normal speech. Laboratory Laboratory Tests Test 06/25/17 02:59 06/25/17 03:25 06/25/17 04:32 White Blood Count 10.2 Red Blood Count 4.08 Hemoglobin 12.0 Hematocrit 35.1 Mean Corpuscular Volume 86.2 Mean Corpuscular Hemoglobin 29.4 Mean Corpuscular Hemoglobin Concent 34.1 Red Cell Distribution Width 13.5 Platelet Count 303 Mean Platelet Volume 6.5 Neutrophils (%) (Auto) 68.2 Lymphocytes (%) (Auto) 23.6 Monocytes (%) (Auto) 5.8 Eosinophils (%) (Auto) 2.2 Basophils (%) (Auto) 0.2 Neutrophils # (Auto) 7.0 Lymphocytes # (Auto) 2.4 Monocytes # (Auto) 0.6 Eosinophils # (Auto) 0.2 Basophils # (Auto) 0.0 CBC Comment DIFF FINAL Differential Comment Prothrombin Time 12.1 Prothromb Time International Ratio 1.2 Activated Partial Thromboplast Time 31.3 Blood Urea Nitrogen 4 Creatinine 0.69 Random Glucose 80 Total Protein 6.2 Albumin 3.3 Calcium Level 8.4 Magnesium Level 1.8 Alkaline Phosphatase 52 Aspartate Amino Transf (AST/SGOT) 16 Alanine Aminotransferase (ALT/SGPT) 19 Total Bilirubin 0.4 Sodium Level 132 Potassium Level 5.0 Chloride Level 99 Carbon Dioxide Level 28.4 Anion Gap 5 Estimat Glomerular Filtration Rate 120 Ammonia 27 Total Creatine Kinase 187 Troponin I LESS THAN 0.02 Thyroid Stimulating Hormone 3rd Gen 1.390 Salicylates Level 8.4 Acetaminophen Level LESS THAN 2.0 Ethyl Alcohol Level LESS THAN 3 Urine Color YELLOW Urine Turbidity CLEAR Urine pH 8.0 Urine Specific [place] LESS/EQUAL 1.005 Urine Protein NEG Urine Glucose (UA) NEG Urine Ketones NEG Urine Occult Blood SMALL Urine Nitrite NEG Urine Bilirubin NEG Urine Urobilinogen 0.2 Urine Leukocyte Esterase NEG Urine RBC 4-9 Urine WBC 0-2 Urine Squamous Epithelial Cells 0-5 Urine Bacteria NONE Microscopic Urinalysis Comment CULT NOT INDICATED Urine Opiates Screen NEG Urine Barbiturates Screen NEG Urine Amphetamines Screen NEG Urine Benzodiazepines Screen NEG Urine Cocaine Screen NEG Urine Cannabinoids Screen NEG Blood Gas Puncture Site RT BRACHIAL Blood Gas Patient Temperature 98.6 Blood Gas HCO3 22 Blood Gas Base Excess -2.2 Blood Gas Oxygen Saturation 96 Arterial Blood pH 7.41 Arterial Blood Partial Pressure CO2 35 Arterial Blood Partial Pressure O2 96 Arterial Blood Oxygen Content 15.7 Arterial Blood Carboxyhemoglobin 0.9 Arterial Blood Methemoglobin 1.0 Blood Gas Hemoglobin 11.6 Oxygen Delivery Device ROOM AIR Blood Gas Inspired Oxygen 21 Result Diagram: 06/25/1725806/25/17258 Imaging Last Impressions Head CT 06/25/17221 Signed Impressions: Service Date/Time: Sunday, June 25, 2017 02:57 - CONCLUSION: 1. Stable encephalomalacia again noted involving the left frontal and parietal lobes as well as the inferior right frontal lobe. 2. No acute hemorrhage or mass effect. Marcelo Roper MD Chest X-Ray 06/25/17221 Signed Impressions: Service Date/Time: Sunday, June 25, 2017 02:32 - CONCLUSION: No acute disease. MD Davi Owensi VTE Risk Assessment Davii VTE Risk Assessment: No/Low Risk (score <= 1) Caprini Risk Assessment Model Point Value = 1 Point Value = 2 Point Value = 3 Point Value = 5 Age 41-60 Minor surgery BMI > 25 kg/m2 Swollen legs Varicose veins or History of unexplained or recurrent spontaneous Oral contraceptives or hormone replacement Sepsis (< 1 month) Serious lung disease, including pneumonia (< 1 month) Abnormal pulmonary function Acute myocardial infarction Congestive heart failure (< 1 month) History of inflammatory bowel disease Medical patient at bed rest Age 61-74 Arthroscopic surgery Major open surgery (> 45 min) Laparoscopic surgery (> 45 min) Malignancy Confined to bed (> 72 hours) Immobilizing plaster cast Central venous access Age >= 75 History of VTE Family history of VTE Factor V Leiden Prothrombin [id number] Lupus anticoagulant Anticardiolipin antibodies Elevated serum homocysteine Heparin-induced thrombocytopenia Other congenital or acquired thrombophilia Stroke (< 1 month) Elective arthroplasty Hip, pelvis, or leg fracture Acute spinal cord injury (< 1 month) Prophylaxis Regimen Total Risk Factor Score Risk Level Prophylaxis Regimen 0-1 Low Early ambulation 2 Moderate Order ONE of the following: *Sequential Compression Device (SCD) *Heparin 5000 units SQ BID 3-4 Higher Order ONE of the following medications: *Heparin 5000 units SQ TID *Enoxaparin/Lovenox 40 mg SQ daily (WT < 150 kg, CrCl > 30 mL/min) *Enoxaparin/Lovenox 30 mg SQ daily (WT < 150 kg, CrCl > 10-29 mL/min) *Enoxaparin/Lovenox 30 mg SQ BID (WT < 150 kg, CrCl > 30 mL/min) AND/OR *Sequential Compression Device (SCD) 5 or more Highest Order ONE of the following medications: *Heparin 5000 units SQ TID (Preferred with Epidurals) *Enoxaparin/Lovenox 40 mg SQ daily (WT < 150 kg, CrCl > 30 mL/min) *Enoxaparin/Lovenox 30 mg SQ daily (WT < 150 kg, CrCl > 10-29 mL/min) *Enoxaparin/Lovenox 30 mg SQ BID (WT < 150 kg, CrCl > 30 mL/min) AND *Sequential Compression Device (SCD) Assessment and Plan Problem List: (1) Seizure disorder ICD Code: G40.909 - Epilepsy, unspecified, not intractable, without status epilepticus Status: Acute Plan: Patient's Zyprexa has been held. Continue to follow closely on other antiepileptic drugs Seizure precautions Follow-up electrolytes (2) Altered mental status, unspecified ICD Code: R41.82 - Altered mental status, unspecified Status: Acute Plan: Patient's baseline mental status is affected by his traumatic brain injury We will continue to follow closely for return to baseline Patient lives with his mother (3) Overdose ICD Code: T50.901A - Poisoning by unspecified drugs, medicaments and biological substances, accidental (unintentional), initial encounter Status: Acute Plan: Appears to be due to Zyprexa overdose We will continue on telemetry Follow-up electrolytes No evidence of suicidal intent Problem Qualifiers (1) Altered mental status, unspecified: Qualified Codes: R41.82 - Altered mental status, unspecified (2) Overdose: Qualified Codes: T50.901A - Poisoning by unspecified drugs, medicaments and biological substances, accidental (unintentional), initial encounter Barbra Hylton MD June 25, 2017 14:05
[2017-06-25] MEDS: LORazepam 2 MG TAB PO PRN ×2 (14:08→22:58)
[2017-06-25] MEDS: SODIUM CHLORIDE 1 GRAM TAB PO SCH (15:35)
[2017-06-25] MEDS: BUDESONIDE-FORMOTEROL 160/4.5 MCG INHALER INH SCH ×2 (15:35→20:32)
[2017-06-26] VITALS (7 sets, daily range): BP systolic 99–134; BP diastolic 68–85; PULSE 72–109; RESP 16–28; TEMP 97.1–98.4; O2SAT 97–98
[2017-06-26] MEDS ORDERED: HALOPERIDOL LACTATE 5 MG/ML AMP IM ONE (01:30)
[2017-06-26] MEDS: SODIUM CHLOR 0.9% 1000 ML INJ 1,000 ML IV SCH ×3 (02:02→23:10)
[2017-06-26 05:04] LABS: AUTOMATED NEUTROPHIL # 5.5 TH/MM3 (1.8-7.7); BASOPHIL # 0.1 TH/MM3 (0-0.2); BASOPHIL % 1.2 % (0.0-2.0); EOSINOPHIL # 0.1 TH/MM3 (0-0.4); EOSINOPHIL % 1.5 % (0.0-4.0); HEMOGLOBIN 13.6 GM/DL (13.0-17.0); LYMPH % 20.7 % (9.0-44.0); LYMPHOCYTE # 1.6 TH/MM3 (1.0-4.8); MEAN CORPUSCULAR HEMOGLOBIN 28.6 PG (27.0-34.0); MEAN CORPUSCULAR HGB CONC 32.5 % (32.0-36.0); MEAN PLATELET VOLUME 6.3 FL (7.0-11.0); MONO % 6.4 % (0.0-8.0); MONOCYTE # 0.5 TH/MM3 (0-0.9); NEUT % 70.2 % (16.0-70.0); PLATELET COUNT 380 TH/MM3 (150-450); RED BLOOD COUNT 4.77 MIL/MM3 (4.50-5.90); RED CELL DISTRIBUTION WIDTH 13.5 % (11.6-17.2); WHITE BLOOD COUNT 7.8 TH/MM3 (4.0-11.0)
[2017-06-26 05:26] LABS: ALBUMIN 4.1 GM/DL (3.4-5.0); ALKALINE PHOSPHATASE 76 U/L (45-117); ALT (GPT) 28 U/L (12-78); AST (GOT) 47 U/L (15-37); BICARBONATE 21.1 MEQ/L (21.0-32.0); BLOOD UREA NITROGEN 3 MG/DL (7-18); CALCIUM 9.2 MG/DL (8.5-10.1); CHLORIDE 105 MEQ/L (98-107); CREATININE 0.61 MG/DL (0.60-1.30); GLOMERULAR FILTRATION RATE 138 ML/MIN (>89); GLUCOSE,RANDOM 94 MG/DL (74-106); SODIUM (NA) 135 MEQ/L (136-145); TOTAL BILIRUBIN ADULT 0.7 MG/DL (0.2-1.0); TOTAL PROTEIN 7.9 GM/DL (6.4-8.2)
[2017-06-26] MEDS: DOCUSATE SODIUM 50 MG/SENNA 8.6 MG TAB PO SCH ×2 (08:24→20:17)
[2017-06-26] MEDS: levETIRAcetam 500 MG TAB PO SCH ×2 (08:24→20:17)
[2017-06-26] MEDS: SODIUM CHLORIDE 1 GRAM TAB PO SCH (08:24)
[2017-06-26] MEDS: PRAVASTATIN SOD 20 MG TAB PO SCH (08:24)
[2017-06-26] MEDS: FLUoxetine HCL 20 MG CAP PO SCH (08:24)
[2017-06-26] MEDS: SODIUM CHLORIDE 0.9% FLUSH 10 ML FLUSH IV FLUSH SCH ×2 (08:25→20:17)
[2017-06-26] MEDS: BUDESONIDE-FORMOTEROL 160/4.5 MCG INHALER INH SCH ×2 (08:25→20:16)
[2017-06-26] MEDS: LORazepam 2 MG TAB PO PRN ×2 (09:20→20:17)
[2017-06-26] MEDS ORDERED: LORazepam 2 MG/ML VIAL IV PUSH ONE (10:45)
--- NOTE | 2017-06-26 13:56 | HHI.PR ---
Subjective Remarks Patient seen and evaluated for altered mental status with probable unintentional Zyprexa overdose. CPK still elevated. Patient requiring constant supervision and Ativan. Objective Vitals Vital Signs Date Time Temp Pulse Resp B/P (MAP) Pulse Ox O2 Delivery O2 Flow Rate FiO2 06/26/17 08:00 72 06/26/17 08:00 72 28 134/80 (98) 06/26/17 07:00 78 28 101/78 (86) 06/26/17 03:06 97.5 86 16 117/85 (96) 06/26/17 01:04 98 20 125/68 (87) 06/26/17 00:04 92 112/75 (87) 06/25/17 23:04 144 30 121/87 (98) 96 06/25/17 23:00 132 06/25/17 22:04 22 141/97 (112) 06/25/17 21:14 84 22 145/74 (97) 06/25/17 19:28 97.5 90 19 113/67 (82) 95 06/25/17 16:00 96.8 114 24 114/78 (90) 06/25/17 15:00 124 06/25/17 15:00 124 25 112/74 (87) I/O 06/25/17 06/25/17 06/25/17 06/26/17 06/26/17 06/26/17 07:00 15:00 23:00 07:00 15:00 23:00 Intake Total 3000 ml 1105 ml 999 ml Output Total 450 ml 600 ml Balance 3000 ml 655 ml 999 ml -600 ml Intake IV Total 3000 ml 1105 ml 999 ml Output Urine Total 450 ml 600 ml # Voids 2 1 5 Result Diagram: 06/26/17 0435 06/26/17 0435 A/P Problem List: (1) Seizure disorder ICD Code: G40.909 - Epilepsy, unspecified, not intractable, without status epilepticus Status: Acute Plan: Patient's Zyprexa has been held. Continue to follow closely on other antiepileptic drugs Seizure precautions Follow-up electrolytes, CPK still elevated (2) Altered mental status, unspecified ICD Code: R41.82 - Altered mental status, unspecified Status: Acute Plan: Patient's baseline mental status is affected by his traumatic brain injury Closer to baseline but still with elevated CPK from Zyprexa overdose (3) Overdose ICD Code: T50.901A - Poisoning by unspecified drugs, medicaments and biological substances, accidental (unintentional), initial encounter Status: Acute Plan: Appears to be due to Zyprexa overdose We will continue on telemetry Follow-up electrolytes and CPK No evidence of suicidal intent Discharge Planning If CPK improved in a.m. likely discharge home with family Problem Qualifiers (1) Altered mental status, unspecified: Qualified Codes: R41.82 - Altered mental status, unspecified (2) Overdose: Qualified Codes: T50.901A - Poisoning by unspecified drugs, medicaments and biological substances, accidental (unintentional), initial encounter Barbra Hylton MD June 26, 2017 13:56
[2017-06-27 04:00] VITALS: BP 115/76; PULSE 84; RESP 20; TEMP 96.1; O2SAT 99
[2017-06-27] MEDS ORDERED: SODIUM CHLOR 0.9% 1000 ML INJ 1,000 ML IV ONE (07:30)
[2017-06-27 07:40] VITALS: BP 135/84; PULSE 70; RESP 20; TEMP 97.4; O2SAT 99
[2017-06-27] MEDS: SODIUM CHLOR 0.9% 1000 ML INJ 1,000 ML IV SCH ×3 (08:02→19:44)
[2017-06-27] MEDS: DOCUSATE SODIUM 50 MG/SENNA 8.6 MG TAB PO SCH ×2 (08:46→21:00)
[2017-06-27] MEDS: SODIUM CHLORIDE 1 GRAM TAB PO SCH (08:46)
[2017-06-27] MEDS: levETIRAcetam 500 MG TAB PO SCH ×2 (08:46→21:00)
[2017-06-27] MEDS: PRAVASTATIN SOD 20 MG TAB PO SCH (08:46)
[2017-06-27] MEDS: FLUoxetine HCL 20 MG CAP PO SCH (08:46)
[2017-06-27] MEDS: BUDESONIDE-FORMOTEROL 160/4.5 MCG INHALER INH SCH ×2 (09:00→21:00)
[2017-06-27] MEDS: SODIUM CHLORIDE 0.9% FLUSH 10 ML FLUSH IV FLUSH SCH ×2 (09:00→21:00)
--- NOTE | 2017-06-27 09:00 | HHI.PR ---
Subjective Remarks 52-year-old male seen today for follow-up on altered mental status, unintentional overuse Zyprexa, rhabdomyolysis. Patient mentation is improving on a daily basis. Did discuss with patient's mother today, she indicates that he is much more alert than he was yesterday. Patient is answering questions appropriately. States that he has to go to the bathroom. States that his hands hurt from having restraints. Patient vital signs appear to be stable, patient remains afebrile. Objective Vitals Vital Signs Date Time Temp Pulse Resp B/P (MAP) Pulse Ox O2 Delivery O2 Flow Rate FiO2 06/27/17 07:40 97.4 70 20 135/84 (101) 99 06/27/17 04:00 96.1 84 20 115/76 (89) 99 06/26/17 20:00 97.1 107 20 117/81 (93) 98 06/26/17 16:00 98.4 109 20 99/70 (80) 97 I/O 06/26/17 06/26/17 06/26/17 06/27/17 06/27/17 06/27/17 07:00 15:00 23:00 07:00 15:00 23:00 Intake Total 999 ml 4800 ml 3499 ml Output Total 600 ml 800 ml Balance 999 ml -600 ml 4000 ml 3499 ml Intake Oral 4800 ml 0 ml IV Total 999 ml 3499 ml Output Urine Total 600 ml 800 ml # Voids 3 Result Diagram: 06/26/17 0435 06/26/17 0435 Objective Remarks GENERAL: Well-developed, well-nourished, in no acute distress. alert and answering questions appropriately HEENT: Head is normocephalic without any lesions or masses noted. Facial features are symmetric. Eyes: Extraocular muscles are intact. Conjunctivae were clear. NECK: Supple without any masses. Trachea midline no deviation. No JVD, CARDIAC: Regular rhythm, regular rate. S1/S2 are heard. No murmurs gallops or rubs. LUNGS: Clear to auscultation bilaterally. No wheeze, rhonchi or rales. No use of accessory muscles on inspiration or expiration. ABDOMEN: Soft, nontender. Nondistended. Bowel sounds heard in all 4 quadrants. No organomegaly or masses. Negative rebound, negative guarding EXTREMITIES: No edema, pulses are equal bilaterally. No cyanosis or clubbing NEUROLOGY: Mood and affect appear appropriate. Cranial nerves II through XII grossly intact. Moving all extremities, speech is clear Urinary Catheter: No Vascular Central Line Catheter: No A/P Assessment and Plan Rhabdomyolysis -Could be secondary to Zyprexa overuse -Increase IV fluid rate to 200 ml/hr -Continue monitor CPK -Renal functions are normal Altered mental status, improved -Patient does have history of traumatic brain injury -Mother indicating the patient is improving -Continue monitor neurological status -Ativan as needed for agitation Seizure disorder -Zyprexa has been held -Continue to follow closely on other antiepileptic drugs -Seizure precautions Unintentional indication overuse -Appears to be due to Zyprexa overdose -No evidence of suicidal intent DVT prevention -Sequential compression devices Discharge Planning Discharge planning when patient mentation continues to improve, when CPK improved. Wally Guerrero June 27, 2017 09:00
[2017-06-27 11:30] VITALS: BP 132/80; PULSE 74; RESP 20; TEMP 97.6; O2SAT 99
[2017-06-27 15:22] VITALS: BP 128/76; PULSE 76; RESP 20; TEMP 98; O2SAT 99
[2017-06-27 20:00] VITALS: BP 108/55; PULSE 89; RESP 18; TEMP 98; O2SAT 98
[2017-06-28] VITALS: BP 133/64; PULSE 85; RESP 18; TEMP 97.1; O2SAT 94
[2017-06-28] MEDS: levETIRAcetam 500 MG TAB PO SCH ×2 (01:48→10:12)
[2017-06-28 07:08] LABS: BICARBONATE 21.3 MEQ/L (21.0-32.0); CALCIUM 8.3 MG/DL (8.5-10.1); CREATININE 0.5 MG/DL (0.60-1.30)
[2017-06-28 08:17] VITALS: BP 107/77; PULSE 85; RESP 18; TEMP 96.9; O2SAT 98
[2017-06-28] MEDS: BUDESONIDE-FORMOTEROL 160/4.5 MCG INHALER INH SCH (09:00)
[2017-06-28] MEDS: SODIUM CHLORIDE 0.9% FLUSH 10 ML FLUSH IV FLUSH SCH (09:00)
[2017-06-28] MEDS: FLUoxetine HCL 20 MG CAP PO SCH (09:00)
--- NOTE | 2017-06-28 09:29 | HHI.DCPOC ---
Discharge Care Plan Diagnosis: (1) Altered mental status, unspecified (2) Overdose (3) Rhabdomyolysis Goals to Promote Your Health * To prevent worsening of your condition and complications * To maintain your health at the optimal level Directions to Meet Your Goals Take your medications as prescribed Follow your dietary instruction Follow activity as directed Keep your appointments as scheduled Take your immunizations and boosters as scheduled If your symptoms worsen call your PCP, if no PCP go to Urgent Care Center or Emergency Room Smoking is Dangerous to Your Health. Avoid second hand smoke Call the 24-hour hour crisis hotline for domestic abuse at Wally Guerrero June 28, 2017 09:28
--- NOTE | 2017-06-28 09:29 | HHI.PR ---
Subjective Remarks Follow-up rhabdomyolysis/toxic encephalopathy June 28, 2017-patient seen and examined, mentation significantly improved, patient states he tolerated p.o. this morning without any competition nausea and vomiting. Vital stable. Spoke to mom and states she is very happy about patient's conditions Objective Vitals Vital Signs Date Time Temp Pulse Resp B/P (MAP) Pulse Ox O2 Delivery O2 Flow Rate FiO2 06/28/17 08:17 96.9 85 18 107/77 (87) 98 06/28/17 00:00 97.1 85 18 133/64 (87) 94 06/27/17 20:00 98.0 89 18 108/55 (72) 98 06/27/17 15:22 98.0 76 20 128/76 (93) 99 06/27/17 11:30 97.6 74 20 132/80 (97) 99 I/O 06/27/17 06/27/17 06/27/17 06/28/17 06/28/17 06/28/17 07:00 15:00 23:00 07:00 15:00 23:00 Intake Total 3499 ml 1480 ml 580 ml Output Total 400 ml Balance 3499 ml 1080 ml 580 ml Intake Oral 0 ml 480 ml 580 ml IV Total 3499 ml 1000 ml Output Urine Total 400 ml # Voids 3 1 4 4 # Bowel Movements 1 2 0 Result Diagram: 06/26/17 0435 06/28/17 0627 Imaging Last Impressions Head CT 06/25/17221 Signed Impressions: Service Date/Time: Sunday, June 25, 2017 02:57 - CONCLUSION: 1. Stable encephalomalacia again noted involving the left frontal and parietal lobes as well as the inferior right frontal lobe. 2. No acute hemorrhage or mass effect. Marcelo Roper MD Chest X-Ray 06/25/17221 Signed Impressions: Service Date/Time: Sunday, June 25, 2017 02:32 - CONCLUSION: No acute disease. Marcelo Roper MD Objective Remarks GENERAL: NAD SKIN: Warm and dry. HEAD: Normocephalic. EYES: No scleral icterus. No injection or drainage. NECK: Supple, trachea midline. No JVD or lymphadenopathy. CARDIOVASCULAR: Regular rate and rhythm without murmurs, gallops, or rubs. RESPIRATORY: Breath sounds equal bilaterally. No accessory muscle use. GASTROINTESTINAL: Abdomen soft, non-tender, nondistended. MUSCULOSKELETAL: No cyanosis, or edema. BACK: Nontender without obvious deformity. No CVA tenderness. A/P Problem List: (1) Seizure disorder ICD Code: G40.909 - Epilepsy, unspecified, not intractable, without status epilepticus Status: Resolved (2) Altered mental status, unspecified ICD Code: R41.82 - Altered mental status, unspecified Status: Resolved (3) Overdose ICD Code: T50.901A - Poisoning by unspecified drugs, medicaments and biological substances, accidental (unintentional), initial encounter Status: Resolved Assessment and Plan 52-year-old man with Rhabdomyolysis-improving -Could be secondary to Zyprexa overuse -Improving with IV fluid as CK down to 704 -Continue monitor CPK -Renal functions are normal Altered mental status, improved -Patient does have history of traumatic brain injury -Mother indicating the patient is improving -Continue monitor neurological status -Ativan as needed for agitation Seizure disorder -Continue to hold Zyprexa -Continue to follow closely on other antiepileptic drugs -Seizure precautions Unintentional indication overuse -Appears to be due to Zyprexa overdose -No evidence of suicidal intent DVT prevention -Sequential compression devices Problem Qualifiers (1) Altered mental status, unspecified: Qualified Codes: R41.82 - Altered mental status, unspecified (2) Overdose: Qualified Codes: T50.901A - Poisoning by unspecified drugs, medicaments and biological substances, accidental (unintentional), initial encounter Bolivar Watts MD June 28, 2017 09:29
--- NOTE | 2017-06-28 09:31 | HHI.DS ---
Discharge Summary Admission Date June 25, 2017 at 06:10 Discharge Date: June 28, 2017 Admitting Diagnosis AMS; seizure; overdose-zyprexa (1) Seizure disorder ICD Code: G40.909 - Epilepsy, unspecified, not intractable, without status epilepticus Status: Acute (2) Altered mental status, unspecified ICD Code: R41.82 - Altered mental status, unspecified Status: Acute (3) Overdose ICD Code: T50.901A - Poisoning by unspecified drugs, medicaments and biological substances, accidental (unintentional), initial encounter Status: Acute Procedures None Brief History - From Admission Patient is a 52-year-old gentleman with a history of traumatic brain injury who came to the hospital with his parents after he was acting strangely at home. Patient requires quite a bit of care from his family members and was found by them in a disheveled room with decreased level of consciousness from his baseline. Patient was seen by 911 services at the site and found to have normal blood sugar. There is some history of a possible Zyprexa overdose by the patient. He takes Zyprexa for seizures. Patient was also increased on his Ativan by his neurology's office. He has not had any fevers or chills are dysuria. This time the patient is seen in the ICU. Patient has become more alert although he is still not at his baseline. He will require further evaluation and treatment in the hospital CBC/BMP: 06/26/17 0435 06/28/17 0627 Significant Findings Laboratory Tests Test 06/25/17 19:22 06/26/17 04:35 06/27/17 06:30 06/27/17 14:05 Salicylates Level LESS THAN 1.7 MG/DL Mean Platelet Volume 6.3 FL (7.0-11.0) Neutrophils (%) (Auto) 70.2 % (16.0-70.0) Blood Urea Nitrogen 3 MG/DL (7-18) Aspartate Amino Transf (AST/SGOT) 47 U/L (15-37) Sodium Level 135 MEQ/L (136-145) Total Creatine Kinase 1260 U/L (39-308) 2432 U/L (39-308) 1527 U/L (39-308) Creatine Kinase MB 7.1 NG/ML (0.5-3.6) 13.4 NG/ML (0.5-3.6) 8.3 NG/ML (0.5-3.6) Test 06/28/17 06:27 Creatinine 0.50 MG/DL (0.60-1.30) Calcium Level 8.3 MG/DL (8.5-10.1) Chloride Level 112 MEQ/L (98-107) Total Creatine Kinase 740 U/L (39-308) PE at Discharge GENERAL: Well-developed, well-nourished, in no acute distress. alert and answering questions appropriately HEENT: Head is normocephalic without any lesions or masses noted. Facial features are symmetric. Eyes: Extraocular muscles are intact. Conjunctivae were clear. NECK: Supple without any masses. Trachea midline no deviation. No JVD, CARDIAC: Regular rhythm, regular rate. S1/S2 are heard. No murmurs gallops or rubs. LUNGS: Clear to auscultation bilaterally. No wheeze, rhonchi or rales. No use of accessory muscles on inspiration or expiration. ABDOMEN: Soft, nontender. Nondistended. Bowel sounds heard in all 4 quadrants. No organomegaly or masses. Negative rebound, negative guarding EXTREMITIES: No edema, pulses are equal bilaterally. No cyanosis or clubbing NEUROLOGY: Mood and affect appear appropriate. Cranial nerves II through XII grossly intact. Moving all extremities, speech is clear Hospital Course While in hospital, patient was treated for Rhabdomyolysis which improved IV fluid hydration as CPK improved prior to discharge. Zyprexa was held and patient was continued on other antiepileptic drugs. Seizure precautions were provided. DVT prophylaxis was provided. Prior to discharge, patient conditions improved and vitals remained stable Pt Condition on Discharge: Good Discharge Disposition: Discharge Home Discharge Time: <= 30 minutes Bolivar Watts MD June 28, 2017 09:31
[2017-06-28] MEDS: SODIUM CHLORIDE 1 GRAM TAB PO SCH (10:12)
[2017-06-28] MEDS: DOCUSATE SODIUM 50 MG/SENNA 8.6 MG TAB PO SCH (10:12)
[2017-06-28] MEDS: PRAVASTATIN SOD 20 MG TAB PO SCH (10:12)
== END 2017-06-28 10:54 | disposition home or self-care (01) ==
LOC: PHED 02:17 → PHEDA 06:10 → PHICU 09:33 → PH3A 06-26 11:49
PROVIDERS: ADMIT Hospitalist; ATTEND Hospitalist
DX: G40.909 Epilepsy, unspecified, not intractable, without status epilepticus (principal); R41.82 Altered mental status, unspecified; T43.591A Poisoning by other antipsychotics and neuroleptics, accidental (unintentional), initial encounter; S06.9X9S Unspecified intracranial injury with loss of consciousness of unspecified duration, sequela; I95.9 Hypotension, unspecified; E78.5 Hyperlipidemia, unspecified; G92 Toxic encephalopathy; M62.82 Rhabdomyolysis; J44.9 Chronic obstructive pulmonary disease, unspecified; Z82.49 Family history of ischemic heart disease and other diseases of the circulatory system; Z86.73 Personal history of transient ischemic attack (TIA), and cerebral infarction without residual deficits
CPT/HCPCS: 36600; 70450; 71045; 80048; 80053; 80307; 81001; 82140; 82550; 82552; 82805; 83735; 84443; 84484; 85025; 85610; 85730; 93005; 96360; 96361; 96372; 96374; 96375; 96376; 97110; 97116; 97161; 97530; 99291; G0378; G8987; G8988; J1630; J1953; J2060; J7030